=== PATIENT | female | born 1945 | race Caucasian/White ===

== ENCOUNTER 2023-02-10 11:29 | Emergency (ER) | payer MEDICARE, OTHER, SELFPAY ==
[2023-02-10 11:30] VITALS: BP 249/89; PULSE 68; RESP 16; TEMP 36.8; O2SAT 99; BMI 23.3
--- NOTE | 2023-02-10 11:35 | ED.RN ---
DISCUSSED WITH DR. 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 NO NEW ORDERS GIVEN.
--- NOTE | 2023-02-10 12:30 | EX.ED.DYSGE1 ---
HPI History of Present Illness Chief Complaint: Hypertension Informant: patient Narrative Narrative: The patient was referred in with elevated blood pressure. This patient saw boiler control room operator today. She has had some intermittent waxing and waning blurriness in the eye. She was following up today. 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 They stated that it is slowly getting bigger. They have her referred to a retinal specialist that she will be seeing on Monday. She is not having headaches. She is not having any neurologic complaints now. While she was at the office they got her blood pressure over 200 so they recommended she come in here. She states she has a history of high blood pressure. She is on carvedilol and Benicar. She has taken them. When she checks her blood pressure at home it is always about 120. She states she has a long history of whitecoat hypertension. She states it does not matter even if she is at the dentist her blood pressure will go up. She has no chest pain or shortness of breath or any symptoms related to this. [facility] Medical History Hypertension Retinal micro-aneurysm of right eye Home Medications carvedilol 6.25 mg tablet 12.5 mg PO BID 02/10/23 [History Last Taken Unknown] estradiol 0.01% (0.1 mg/gram) vaginal cream (Estrace) 0.5 appful vaginal QWEEK 02/10/23 [History Last Taken Unknown] [id number]-[id number] C-Mn 500 mg-400 mg capsule (Glucosamine Chondroitin Maximum Strength) 1 cap PO DAILY 02/10/23 [History Last Taken Unknown] methylprednisolone 4 mg tablet (Medrol) 4 mg PO QODAY 02/10/23 [History Last Taken Unknown] multivitamin (Daily Multi-Vitamin tablet) 1 tab PO DAILY 02/10/23 [History Last Taken Unknown] olmesartan 40 mg-hydrochlorothiazide 25 mg tablet (Benicar HCT) 1 tab PO DAILY 02/10/23 [History Last Taken Unknown] pantoprazole 40 mg granules delayed-release for susp in packet 40 mg PO DAILY 02/10/23 [History Last Taken Unknown] polyethylene glycol 3350 17 gram/dose oral powder (ClearLax) 4 g PO DAILY 02/10/23 [History Last Taken Unknown] potassium chloride 20 mEq tablet,extended release 20 meq PO BID 02/10/23 [History Last Taken Unknown] simvastatin 40 mg tablet 40 mg PO QHS 02/10/23 [History Last Taken Unknown] triamcinolone acetonide 0.1 % topical cream 1 applic topical BID 02/10/23 [History Last Taken Unknown] Allergy/AdvReac Type Severity Reaction Status Date / Time No Known Allergies Allergy Verified 02/10/23 11:30 Social History Smoking Status: Never smoker ROS ROS ED ROS Narrative A complete review of systems was performed and is negative except as documented in the history of present illness. Some specific details below. Constitutional: No recent fevers or chills. EYE: See history of present illness. ENT: No difficulty swallowing. No swelling. No pain. No reflux symptoms. CV: No palpitations chest pain or syncope Respiratory: No dyspnea. GI: No abdominal pain. No nausea vomiting diarrhea. No blood in stool. : No frequency dysuria or hematuria. Musculoskeletal: No recent trauma. No pains. No swelling. Skin: No rash. Nondiaphoretic. Neuro: No weakness or numbness. Endocrine: No polyuria or polydipsia. EXAM Physical Exam Narrative Exam Narrative: CONSTITUTIONAL: Patient is nontoxic in appearance. The patient looks comfortable. Work of breathing looks normal. HEENT: No notable trauma. Mucous membranes moist. No sinus tenderness. No indication of pain with swallowing. EYES: Partially dilated still. Comprehensive eye exam was just done by boiler control room operator within the last hours. NECK:No JVD. No stridor. CARDIOVASCULAR: Regular rate. Regular rhythm. No notable murmur. No JVD. No muffled tones. Peripheral pulses are equal x 4. RESPIRATORY: No respiratory distress. Breathing is unlabored. No wheezes. No rhonchi. No rales. No pain with a deep breath. No chest wall tenderness. GASTROINTESTINAL: Not distended. Bowel sounds are normal. No tenderness. GENITOURINARY: No CVA tenderness. MUSCULOSKELETAL: Atraumatic. No peripheral edema. No tenderness. NEUROLOGICAL: Patient is alert and appropriate. No focal deficit noted. SKIN: No noted rashes. No diaphoresis. PSYCHIATRIC: Patient is calm. Mood is appropriate. Const Vital Signs: 02/10/23 11:30 02/10/23 12:20 02/10/23 13:00 Temperature 98.2 F Temperature Source Temporal Pulse Rate 68 82 Respiratory Rate 16 20 H Respiratory Effort Normal Respiratory Pattern Normal Blood Pressure 249/89 H 178/94 H Blood Pressure Mean 142 122 Pulse Ox 99 97 Oxygen Delivery Method Room Air Room Air MDM MDM MDM Narrative Medical decision making narrative: Patient CBC shows no acute abnormalities. Patient's electrolytes show minimal elevation of chloride but otherwise normal. Patient's glucose is minimally up at 120 and this can be followed. This does not need acute treatment. Blood pressure is now down to 166/92. It is progressively come down with no therapy. She watches it at home closely. I do not think we need to change in therapy. She has an appointment with the retinal specialist on Monday. Lab Data Attestation: I reviewed the patient's lab results. Labs: Laboratory Results - last 24 hr 02/10/23 12:35 WBC 8.8 RBC 4.23 Hgb 14.1 Hct 41.1 MCV 97.2 MCH 33.3 H MCHC 34.3 RDW Std Deviation 41.7 RDW Coeff of Linda 11.8 Plt Count 238 MPV 9.5 Immature Gran % (Auto) 0.200 Neut % (Auto) 61.6 Lymph % (Auto) 25.6 Whitfield % (Auto) 9.1 Eos % (Auto) 2.7 Baso % (Auto) 0.8 Absolute Neuts (auto) 5.4 Absolute Lymphs (auto) 2.24 Nucleated RBC % 0 Sodium 141 Potassium 4.0 Chloride 108 H Carbon Dioxide 27.0 Anion Gap 6 BUN 15 Creatinine 0.82 Estim Creat Clear Calc 48.83 Est GFR (MDRD) Af Amer 87 Est GFR (MDRD) Non-Af 72 BUN/Creatinine Ratio 18.3 Glucose 120 H Calcium 9.5 Discharge Plan Triage Chief Complaint: Hypertension ED Provider: Gordon Proctor Dx/Rx/DC Orders Clinical Impression: Benign essential HTN Instructions: ED Hypertension, Established Prescriptions: No Action carvedilol 6.25 mg tablet 12.5 mg PO BID Rx Instructions: must administer with a meal/food estradiol [Estrace] 0.01 % (0.1 mg/gram) cream 0.5 appful vaginal QWEEK [id number] C-Mn [Glucosamine Chondroitin MaxStr] 500-400 mg capsule 1 cap PO DAILY methylprednisolone [Medrol] 4 mg tablet 4 mg PO QODAY polyethylene glycol 3350 [ClearLax] 17 gram/dose powder 4 g PO DAILY multivitamin [Daily Multi-Vitamin] Tablet 1 tab PO DAILY olmesartan-hydrochlorothiazide [Benicar HCT] 40-25 mg tablet 1 tab PO DAILY pantoprazole [address] for susp in packet 40 mg PO DAILY potassium chloride 20 mEq tablet extended release 20 meq PO BID simvastatin 40 mg tablet 40 mg PO QHS triamcinolone acetonide 0.1 % cream 1 applic topical BID Primary Care Provider: Fabio Seymour Referrals: Fabio Seymour MD [Primary Care Provider] - 3-5 Days if not improving Disposition Disposition: Home, Self Care
[2023-02-10 12:47] LABS: Absolute Lymphocyte Count 2.24 X10^3/uL (0.83-4.51); Absolute Neutrophil Count 5.4 X10^3/uL (2.0-7.7); Basophil# 0.07 X10^3/uL; Basophil% 0.8 % (0-1); Eosinophil# 0.24 X10^3/uL; Eosinophils% 2.7 % (0-5); Hematocrit 41.1 % (37-47); Hemoglobin 14.1 g/dL (12.0-15.0); Lymphocyte # 2.24 X10^3/ul (0.83-4.51); Lymphocyte % 25.6 % (19-41); Mean Corp Hgb Conc 34.3 g/dL (32-36); Mean Corpuscular Hgb 33.3 pg (27.0-32.0); Mean Corpuscular Volume 97.2 fL (81-99); Mean Platelet Vol. 9.5 fl (6.2-12.0); Monocyte% 9.1 % (0-10); NRBC Flagged by Analyzer 0 % (0-5); Neutrophil # 5.39 X10^3/uL (2.7-7.7); Neutrophil % 61.6 % (47-70); Platelet Count 238 K/mm3 (150-450); RBC Distribution Width CV 11.8 % (11.6-14.6); RBC Distribution Width SD 41.7 fl (35.1-43.9); Red Blood Count 4.23 M/mm3 (4.2-5.4); White Blood Count 8.8 K/mm3 (4.4-11.0)
[2023-02-10 13:00] VITALS: BP 178/94; PULSE 82; RESP 20; O2SAT 97
--- OUTSIDE RECORDS SUMMARY | 2023-02-10 13:04 | XMS RPT_ITS | CCD ---
Author Name Unknown Address [address] [place] [address] Organization [facility] Care Team Providers Care Scratcher Name Role Phone Fabio Beckham Referring Unavailable Fabio Beckham Primary Care Unavailable PO BECKHAM Referring Unavailable Po Beckham Primary Care Provider Lion ST, Po Salgado Primary Care Provider Yarely Noel R Unavailable Sadie ST, Yarely R Unavailable Po Beckham MD Primary Care Provider Sadie ST, Yarely R Unavailable MARITZA GASTELUM Referring Unavailable PO BECKHAM Primary Care Unavailable KEVIN NJ Referring Unavailable PO BECKHAM Primary Care Unavailable KEVIN NJ Admitting Unavailable KEVIN NJ Attending Unavailable PO BECKHAM Primary Care Unavailable Po Beckham MD Primary Care Provider Po Beckham MD Primary Care Provider Sadie ST, Yarely R Unavailable KELVIN MARISCAL Referring Unavailable PO BECKHAM Primary Care Unavailable MARITZA EASON Attending Unavailable KELVIN MARISCAL Attending Unavailable PO BECKHAM Primary Care Unavailable BARLEY, VANI Attending Unavailable PO BECKHAM Primary Care Unavailable PO BECKHAM Primary Care Unavailable PO BECKHAM Referring Unavailable PO BECKHAM Primary Care Unavailable BARLEY, VANI Referring Unavailable BARLEY, VANI Attending Unavailable PO BECKHAM Primary Care Unavailable PO BECKHAM Attending Unavailable KELVIN MARISCAL Referring Unavailable PO BECKHAM Primary Care Unavailable PO BECKHAM Primary Care Unavailable VANI JOSEPH Attending Unavailable PO BECKHAM Primary Care Unavailable VANI JOSEPH Attending Unavailable KELVIN MARISCAL Referring Unavailable OP BECKHAM Primary Care Unavailable Medications Current Medications Medication Drug Class(es) Dates Sig (Normalized) Sig (Original) acetaminophen 325 mg / oxyCODONE hydrochloride 5 mg oral tablet (4 sources) Opioid Agonist Start: 11-12-2021 End: 01-18-2022 take 1 tablet by mouth every six hours as needed for pain oxyCODONE-acetamino phen (PERCOCET) 5-325 mg tablet Indications: Tear of lateral meniscus of left knee, current, unspecified tear type, subsequent encounter Take 1 tablet by mouth every 6 hours as needed for pain. 10 tablet 0 11/12/2021 01/18/2022 Discontinued (Course of therapy completed) Completed/Discontinued Medications Medication Drug Class(es) Dates Sig (Normalized) Sig (Original) acetaminophen 500 mg oral tablet (1 source) Start: 11-01-2019 End: 11-01-2019 acetaminophen (TYLENOL) tablet 1,000 mg Ascorbic Acid (1 source) Vitamin C End: 11-01-2019 Ascorbic Acid (VITAMIN C PO) Take by mouth 0 11/01/2019 Discontinued (Therapy completed) ascorbic acid 60 mg / beta carotene 5000 unt / copper sulfate 40 mg / dl-alpha tocopheryl acetate 30 unt / sodium selenite 0.04 mg / zinc oxide 40 mg oral tablet (1 source) Vitamin C take 1 tablet by mouth once daily Multiple Vitamins-Minerals (THERAPEUTIC MULTIVITAMIN-MINERA LS) tablet Take 1 tablet by mouth daily 0 Suspended aspirin 81 mg delayed release oral tablet (20 sources) Platelet Aggregation Inhibitor, Nonsteroidal Anti-inflammatory Drug Start: 05-09-2016 take 1 tablet by mouth once daily aspirin, enteric coated (ECOTRIN LOW STRENGTH) 81 mg EC tablet Indications: Essential hypertension Take 1 tablet by mouth once daily. 90 tablet 3 05/09/2016 Active Problems Active Problems Problem Classification Problem Date Documented Date Episodic/Chronic Asthma (20 sources) Mild intermittent asthma; Translations: [Mild intermittent asthma, uncomplicated] Onset: 03-18-2020 03-18-2020 Chronic Disorders of lipid metabolism (20 sources) Mixed hyperlipidemia; Translations: [Mixed hyperlipidemia] Onset: 03-16-2016 03-16-2016 Chronic Diverticulosis and diverticulitis (20 sources) Diverticular disease; Translations: [Diverticulosis of intestine, part unspecified, without perforation or abscess without bleeding] Onset: 06-03-2009 06-03-2009 Chronic Esophageal disorders (20 sources) Gastroesophageal reflux disease; Translations: [Gastro-esophageal reflux disease without esophagitis] Onset: 03-25-2009 03-25-2009 Chronic Essential hypertension (20 sources) Essential hypertension; Translations: [Essential (primary) hypertension] Onset: 03-06-2015 03-06-2015 Chronic Genitourinary symptoms and ill-defined conditions (3 sources) Incontinence; Translations: [Mixed incontinence] Chronic Immunizations and screening for infectious disease (3 sources) Vaccination given; Translations: [Encounter for immunization] Episodic Joint disorders and dislocations; trauma-related (9 sources) Acute tear of medial meniscus of left knee; Translations: [Other tear of medial meniscus, current injury, left knee, initial encounter] Onset: 10-22-2021 Episodic Melanomas of skin (20 sources) Melanoma in situ of trunk; Translations: [Melanoma in situ of other part of trunk] Onset: 03-18-2019 03-18-2019 Chronic Menopausal disorders (3 sources) Atrophy of vagina; Translations: [Postmenopausal atrophic vaginitis] Chronic Mycoses (2 sources) Candidal vulvovaginitis; Translations: [Candidiasis of vulva and vagina] Episodic Osteoarthritis (20 sources) Osteoarthritis; Translations: [Unspecified osteoarthritis, unspecified site] Onset: 12-17-2009 02-08-2021 Chronic Other aftercare (1 source) Patient encounter status; Translations: [Other prison (current) drug therapy] Episodic Other ear and sense organ disorders (20 sources) Hearing loss; Translations: [Unspecified hearing loss, unspecified ear] Onset: 03-06-2014 03-06-2014 Chronic Other nervous system disorders (20 sources) Carpal tunnel syndrome of right wrist; Translations: [Carpal tunnel syndrome, right upper limb] Onset: 10-27-2017 11-30-2017 Chronic Other non-traumatic joint disorders (2 sources) Pain in left knee; Translations: [Pain in joint, lower leg] Episodic Other non-traumatic joint disorders (1 source) Effusion of joint of left knee; Translations: [Effusion, left knee] Episodic Other skin disorders (1 source) Skin lesion; Translations: [Disorder of the skin and subcutaneous tissue, unspecified] Episodic Prolapse of female genital organs (20 sources) Uterine prolapse; Translations: [Uterovaginal prolapse, unspecified] Onset: 06-29-2012 06-29-2012 Chronic Rehabilitation care; fitting of prostheses; and adjustment of devices (3 sources) Patient encounter status; Translations: [Encounter for fitting and adjustment of other specified devices] Chronic Residual codes; unclassified (1 source) H/O: surgery; Translations: [Status post right foot surgery] Episodic Unclassified (20 sources) Herniated urinary bladder; Translations: [Cystocele] Onset: 06-29-2012 06-29-2012 Past or Other Problems Problem Classification Problem Date Documented Da te Episodic/Chronic Conditions associated with dizziness or vertigo (20 sources) Benign paroxysmal positional vertigo; Translations: [Benign paroxysmal vertigo, unspecified ear] Onset: 03-06-2014 03-06-2014 Episodic Diabetes mellitus without complication (20 sources) Prediabetes; Translations: [Prediabetes] Onset: 10-22-2021 Episodic Fluid and electrolyte disorders (20 sources) Hypokalemia; Translations: [Hypokalemia] Onset: 10-04-2010 10-04-2010 Episodic Other aftercare (1 source) Other prison (current) drug therapy; Translations: [Medication management] Onset: 03-14-2022 Episodic Other ear and sense organ disorders (20 sources) Tinnitus; Translations: [Tinnitus, unspecified ear] Onset: 03-06-2014 03-06-2014 Episodic Other non-epithelial cancer of skin (20 sources) Basal cell carcinoma of neck; Translations: [Basal cell carcinoma of skin of scalp and neck] Onset: 08-23-2018 08-23-2018 Episodic Other non-traumatic joint disorders (6 sources) Pain in right hip joint; Translations: [Pain in right hip] Onset: 09-28-2022 09-08-2022 Episodic Other non-traumatic joint disorders (2 sources) Pain in right hip; Translations: [Pain in right hip] Onset: 09-28-2022 Episodic Other screening for suspected conditions (not mental disorders or infectious disease) (5 sources) Other abnormal and inconclusive findings on diagnostic imaging of breast; Translations: [Patient encounter status] Onset: 05-10-2018 Episodic Spondylosis; intervertebral disc disorders; other back problems (6 sources) Acute back pain with sciatica; Translations: [Lumbago with sciatica, right side] Onset: 09-28-2022 09-08-2022 Episodic Results Test Name Value Interpretation Reference Range Facil ity Vital Signs Date Time Vital Sign Value Performing Clinician Catherine valenzuela 02-02-2023 11:30-0500 Diastolic blood pressure 83 mm[Hg] Vani Barley TIME CLOCK INSPECTOR.MINER Work Phone (unformatted): [phone] [facility] 02-02-2023 11:30-0500 Heart rate 56 /min Vani Barley TIME CLOCK INSPECTOR.MINER Work Phone (unformatted): [phone] [facility] 02-02-2023 11:30-0500 SaO2% (BldA) [Mass fraction] 99 % Vani Barley TIME CLOCK INSPECTOR.MINER Work Phone (unformatted): [phone] [facility] 02-02-2023 11:30-0500 Systolic blood pressure 163 mm[Hg] Vani Barley TIME CLOCK INSPECTOR.MINER Work Phone (unformatted): [phone] [facility] 09-08-2022 09:24-0400 Body height 162.6 cm Kelvin Jose Carlos TIME CLOCK INSPECTOR.CN P Work Phone: [facility] 09-08-2022 09:24-0400 Body weight 61.24 kg Kelvin Jose Carlos TIME CLOCK INSPECTOR.CN P Work Phone: [facility] 09-08-2022 09:24-0400 Diastolic blood pressure 78 mm[Hg] Kelvin Jose Carlos TIME CLOCK INSPECTOR.MINER Work Phone: [facility] 09-08-2022 09:24-0400 Heart rate 82 /min Kelvin Jose Carlos TIME CLOCK INSPECTOR.CN P Work Phone: [facility] 09-08-2022 09:24-0400 Systolic blood pressure 185 mm[Hg] Kelvin Jose Carlos TIME CLOCK INSPECTOR.MINER Work Phone: [facility] 03-21-2022 10:18-0500 Body height 162.6 cm Po Beckham MD Work Phone: [facility] 03-21-2022 10:18-0500 Body weight 61.24 kg Po Beckham MD Work Phone: [facility] 03-21-2022 10:18-0500 Diastolic blood pressure 59 mm[Hg] Po Beckham MD Work Phone: [facility] 03-21-2022 10:18-0500 Heart rate 65 /min Po Beckham MD Work Phone: [facility] 03-21-2022 10:18-0500 SaO2% (BldA) [Mass fraction] 99 % Po Beckham MD Work Phone: [facility] 03-21-2022 10:18-0500 Systolic blood pressure 139 mm[Hg] Po Beckham MD Work Phone: [facility] 11-19-2021 10:08-0400 Body height 162.6 cm Ann Andrade PA- C Work Phone: [facility] 11-19-2021 10:08-0400 Body weight 60.78 kg Ann Andrade PA- C Work Phone: [facility] 10-22-2021 11:17-0400 Body height 162.6 cm Pacc 1 Work Phone: [facility] 10-22-2021 11:17-0400 Body temperature 98.1 [degF] Pacc 1 Work Phone: [facility] 10-22-2021 11:17-0400 Body weight 60.78 kg Pacc 1 Work Phone: [facility] 10-22-2021 11:17-0400 Diastolic blood pressure 78 mm[Hg] Pacc 1 Work Phone: [facility] 10-22-2021 11:17-0400 Heart rate 66 /min Pacc 1 Work Phone: [facility] 10-22-2021 11:17-0400 Respiratory rate 18 /min Pacc 1 Work Phone: [facility] 10-22-2021 11:17-0400 SaO2% (BldA) [Mass fraction] 98 % Pac 1 Work Phone: [facility] 10-22-2021 11:17-0400 Systolic blood pressure 166 mm[Hg] Pac 1 Work Phone: [facility] 10-04-2021 11:14-0400 Body height 162.6 cm Kevin Nj MD Work Phone: [facility] 10-04-2021 11:14-0400 Body weight 61.69 kg Kevin Nj MD Work Phone: [facility] 09-10-2021 10:43-0400 Body height 162.6 cm Kevin Nj MD Work Phone: [facility] 09-10-2021 10:43-0400 Body weight 61.69 kg Kevin Nj MD Work Phone: [facility] 07-14-2021 11:36-0400 Body height 162.6 cm Po Beckham MD Work Phone: [facility] 07-14-2021 11:36-0400 Body weight 61.69 kg Po Beckham MD Work Phone: [facility] 07-14-2021 11:36-0400 Diastolic blood pressure 57 mm[Hg] Po Beckham MD Work Phone: [facility] 07-14-2021 11:36-0400 Heart rate 64 /min Po Beckham MD Work Phone: [facility] 07-14-2021 11:36-0400 SaO2% (BldA) [Mass fraction] 99 % Po Beckham MD Work Phone: [facility] 07-14-2021 11:36-0400 Systolic blood pressure 168 mm[Hg] Po Beckham MD Work Phone: [facility] 11-01-2019 10:37-0400 BP Diastolic 72 mm[Hg] Mk Chamorro [place] 11-01-2019 10:37-0400 BP Systolic 170 mm[Hg] Mk Cook [facility] [place] 11-01-2019 10:37-0400 Pulse (Heart Rate) 59 /min Mk Cook [facility] [place] 11-01-2019 10:37-0400 Pulse Oximetry 100 % Mk Cook [facility] [place] 11-01-2019 10:37-0400 Respiratory Rate 16 /min Mk Cook [facility] [place] 11-01-2019 10:06-0400 Body Temperature 97.11 [degF] Mk Cook [facility] [place] 11-01-2019 06:39-0400 BMI (Body Mass Index) 23.38 kg/m2 Mk Cook [facility] [place] 11-01-2019 06:39-0400 Body weight 61.78 kg Mk Cook [facility] [place] 11-01-2019 06:39-0400 Height 162.6 cm Mk Cook [facility] [place] Encounters Encounter Date Encounter Type Care Provider Facility Start: 02-02-2023 End: 02-02-2023 ambulatory PO BECKHAM Facility:[facility] Start: 02-02-2023 End: 02-02-2023 Patient encounter procedure Vani Joseph APRN.AG Work Phone (unformatted): [phone] DIRECTOR OF ACQUISITIONS [facility]OL [facility] Procedures Date Procedure Procedure Detail Performing Clinician Start: 09-09-2022 Radex hip unilateral with pelvis 2-3 views Kelvin Mariscal APRN.AG Work Phone: Start: 06-13-2022 Screening mammography bi 2-view breast inc cad Po Beckham MD Work Phone: Start: 03-21-2022 PFIZER-BIONTECH COVID-19 BIVALENT BOOSTER VACCINE, AGE 12+ YR Kelvin Mariscal TIME CLOCK INSPECTOR.AG Work Phone: Start: 09-03-2021 PFIZER-BIONTECH COVID-19 VACCINE, AGE 12+ YR (LOVE TOP) Po Beckham MD Work Phone: Start: 07-15-2021 Radiologic examination knee 1/2 views Po Beckham MD Work Phone: Start: 07-14-2021 Adult depression screening assessment Po Beckham MD Work Phone: Start: 05-13-2021 Screening mammography bi 2-view breast inc cad Po Beckham MD Work Phone: Start: 11-01-2019 OPERATIVE REPORT 3m Scanning Start: 05-09-2016 Adult depression screening assessment Screen W[facility] History of operative procedure on knee S/P arthroscopic knee surgery Ann Andrade PA-C Work Phone: Plan of Treatment Date Care Activity Detail Author Start: 03-14-2025 DIABETES SCREEN DIABETES SCREEN [facility] Start: 03-14-2025 Diabetes Screening Diabetes Screenin g [facility] Start: 03-06-2025 DTaP/Tdap/Td vaccine (3 - Td) DTaP/Tdap/Td vaccine (3 - Td) [place] Start: 03-06-2025 Urine microalbumin profile [facility] Start: 10-22-2024 DIABETES SCREEN DIABETES SCREEN [facility] Start: 03-15-2024 DIABETES SCREEN DIABETES SCREEN [facility] Start: 09-09-2023 ANNUAL PCP TEAM BANDAGE WRAPPING MACHINE OPERATOR SOUMYA DISEASE VISIT ANNUAL PCP TEAM CHRONIC DISEASE VISIT [facility] Start: 03-21-2023 ANNUAL PCP TEAM BANDAGE WRAPPING MACHINE OPERATOR SOUMYA DISEASE VISIT ANNUAL PCP TEAM CHRONIC DISEASE VISIT [facility] Start: 10-14-2022 Covid-19 Vaccine ( season) Covid-19 Vaccine ( season) [facility] Start: 10-14-2022 Influenza vaccination INFLUENZA (#1) [facility] Start: 07-19-2022 COVID-19 VACCINE (6 - Pfizer series) COVID-19 VACCINE (6 - Pfizer series) [facility] Start: 07-14-2022 Adult depression screening assessment DEPRESSION SCREENING [facility] Start: 07-14-2022 ANNUAL PCP TEAM BANDAGE WRAPPING MACHINE OPERATOR SOUMYA DISEASE VISIT ANNUAL PCP TEAM CHRONIC DISEASE VISIT [facility] Start: 03-23-2022 ANNUAL PCP TEAM BANDAGE WRAPPING MACHINE OPERATOR SOUMYA DISEASE VISIT ANNUAL PCP TEAM CHRONIC DISEASE VISIT [facility] Start: 03-08-2022 End: 05-08-2022 CBC panel - Blood by Automated count CBC Lab Routine Medication management Expected: 03/08/2022, Expires: 05/08/2022 [facility] Work Phone: Immunizations Immunization Date Immunization Notes Care Provider Bhumi joanel 11-23-2022 influenza (aIIV4) vaccine, age 65+ yr, quadrivalent, PF (FLUAD QUAD) Vani Joseph TIME CLOCK INSPECTOR.MINER Work Phone (unformatted): [phone] [facility] 03-21-2022 COVID-19 booster vaccine, age 12+ yr, bivalent (PFIZER-BIONTECH) Po Beckham MD Work Phone: [facility] 12-02-2021 influenza (aIIV4) vaccine, age 65+ yr, quadrivalent, PF (FLUAD QUADRIVALENT) Po Beckham MD Work Phone: [facility] 09-03-2021 COVID-19 vaccine, ag e 12+ yr (PFIZER-BIONTECH - LOVE TOP) Nurse Work Phone: [facility] 12-10-2020 COVID-19 original vaccine, age 12+ yr, monovalent (PFIZER-BIONTECH - PURPLE TOP) Kelvin Jose Carlos TIME CLOCK INSPECTOR.MINER Work Phone: [facility] 05-07-2020 COVID-19 vaccine, ag e 12+ yr (PFIZER-BIONTECH - PURPLE TOP) Screen [facility] Work Phone: 04-16-2020 COVID-19 vaccine, ag e 12+ yr (PFIZER-BIONTECH - PURPLE TOP) Screen [facility] 11-19-2019 influenza, high dose seasonal, preservative-free [facility] 06-04-2019 zoster vaccine recombinant [facility] 03-18-2019 zoster vaccine recombinant [facility] 11-01-2018 AS03 adjuvant Po Beckham MD Work Phone: [facility] 11-01-2018 Seasonal trivalent influenza vaccine, adjuvanted, preservative free [facility] 12-11-2017 AS03 adjuvant Po Beckham MD Work Phone: [facility] 12-11-2017 influenza, high dose seasonal, preservative-free [facility] 12-11-2017 Seasonal trivalent influenza vaccine, adjuvanted, preservative free [facility] 12-02-2016 AS03 adjuvant Po Beckham MD Work Phone: [facility] 12-02-2016 influenza, injectabl e, quadrivalent, contains preservative [facility] Work Phone: 12-02-2016 Seasonal trivalent influenza vaccine, adjuvanted, preservative free [facility] 12-29-2015 influenza, seasonal, injectable [facility] 03-06-2015 pneumococcal conjuga te vaccine, 13 valent [facility] 03-06-2015 tetanus toxoid, redu jesus diphtheria toxoid, and acellular pertussis vaccine, adsorbed [facility] 01-03-2015 influenza, high dose seasonal, preservative-free [facility] 02-14-2013 influenza virus vaccine, unspecified formulation [facility] 01-23-2012 influenza virus vaccine, unspecified formulation [facility] 11-26-2010 influenza virus vaccine, unspecified formulation [facility] Work Phone: 12-17-2009 influenza virus vaccine, unspecified formulation [facility] Work Phone: 12-17-2009 pneumococcal polysaccharide vaccine, 23 valent [facility] 07-15-2007 tetanus toxoid, redu jesus diphtheria toxoid, and acellular pertussis vaccine, adsorbed [facility] Work Phone: 07-15-2007 zoster vaccine, live Screen [facility] Work Phone: Payers Date Payer Category Payer Unknown [id number] 2009 [employer] ([employer] and others) [id number] 2009 Medicare [id number] 2009 Medicare MEDICARE MEDICAR E A AND B [id number] 2009-Present [phone] [place] [address] Medicare [id number] 2009 Medicare MEDICARE MEDICAR E A AND B [id number] 2009-Present [phone] [place] [address] Medicare [id number] 2009 Unknown [id number] 1945 Unknown 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) [place], [place] Start: 1945 Sex Assigned At Not on file [place] Start: 05-03-2021 End: 11-12-2021 Exposure to SARS-CoV-2 (event) Not sure [place] Start: 04-30-2021 End: 02-02-2023 Alcohol intake Current drinker of alcohol (finding) [facility] Start: 03-21-2021 End: 03-15-2022 History SDOH Alcohol Frequency 2 [facility] Start: 03-21-2021 History SDOH Alcohol Std Drinks 98 [facility] Start: 03-21-2021 End: 03-15-2022 History SDOH Alcohol Binge 1 [facility] Start: 05-07-2009 History SDOH Alcohol Comment ocass [facility] Start: 03-21-2021 End: 03-15-2022 History SDOH Social Connections Phone 5 [facility] Start: 03-21-2021 End: 03-15-2022 History SDOH Social Connections Living 4 [facility] Start: 10-04-2021 End: 06-27-2022 Cigarettes smoked current (pack per day) - Reported 0.3 [facility] Start: 10-01-2021 End: 10-11-2021 Exposure to SARS-CoV-2 (event) Unable to assess [facility] Start: 10-22-2021 Tobacco Comment Quit 41 years ago [facility] Start: 03-15-2022 History SDOH Alcohol Std Drinks 0 [facility] Start: 03-14-2022 End: 06-27-2022 Social connection and isolation panel [facility] Attends [employer] Not on file [facility] Are you now , , , , never or living with a partner? [facility] How often do you hav e 6 or more drinks on 1 occasion? Never [facility] Do you feel stress - tense, restless, nervous, or anxious, or unable to sleep at night because your mind is troubled all the time - these days [OSQ] Not at all [facility] (I/We) worried wheth er (my/our) food would run out before (I/we) got money to buy more. Never true [facility] In the past 12 month s, was there a time when you were not able to pay the mortgage or rent on time? No [facility] Clinical Notes 12-17-2009 to 02-02-2023 Vani Joseph APRN.MINER - 02/02/2023 11:30 AM Maritza Cerrato, PT - 09/28/2022 11:24 AM Maia Huang RT(R) - 09/09/2022 10:40 AM EDTPatient Instructions Note Date & Type Note Facility 02-02-2023 Note HNO ID: [id number] Author: Vani Joseph APRN.CNP Service: ? Author Type: Nurse Practitioner Type: Progress Notes Filed: 02/02/2023 11:52 AM Note Text: Female Pelvic Medicine AND Reconstructive Surgery Follow-Up Oneyda Eastman is a 77 year old female, who presents for a follow-up of pelvic organ prolapse. HARRIETT on 11/03/2022 with me: Impression: Oneyda Eastman is a 77 year old female with POP, mixed urinary incontinence, vaginal atrophy. Plan: - Fit today with #2 RWS with knob pessary - Increase vaginal estrogen cream to three times a week, new rx sent - Return precautions reviewed, including vaginal bleeding and vaginal pain -Follow up in 3 months, sooner as needed History since last visit: Is very happy with pessary. Is only leaking occasionally with sneezing. Is using vaginal estrogen cream three times a week. Urinary Incontinence: yes, occasional Voiding Dysfunction: no Urinary Frequency: no Urinary Urgency: no Prolapse Symptoms: no Defecatory Dysfunction: no Fecal Incontinence: no Abnormal Bleeding: no Pain: no Abnormal Vaginal Discharge: no I completed the PFSH. Vani Joseph APRN.MINER Docking Pilot offered: Patient declines. OBJECTIVE: There were no vitals taken for this visit. General: Well appearing, alert, in no acute distress, well-hydrated, well nourished. Abdomen: Abdomen soft, non-tender Pelvic: Ext. Genitalia: No lesions or other abnormalities Vagina: atrophic epithelium #2 RWS with knob Pessary was removed and cleansed. Vagina was inspected and found have superficial, non-bleeding small erosion on posterior wall. Pessary replaced without difficulty. Cervix: Normal Urethra: Normal Bimanual: No tenderness, No masses Rectovaginal: Deferred Impression: Oneyda Eastman is a 77 year old female with uterovaginal prolapse, mixed urinary incontinence managed with pessary. Plan: - Continue with #2 RWS with knob pessary - Continue vaginal estrogen cream three times a week, reviewed application instructions - Follow up in 3 months, sooner as needed I spent a total of 15 minutes on the date of the service which included preparing to see the patient, [id number] patient care, completing clinical documentation, obtaining and/or reviewing separately obtained history, performing a medically appropriate examination, and counseling and educating the patient/family/caregiver. Vani Joseph APRN.MINER [facility] 02-02-2023 History of Present illness Narrative Female Pelvic Medicine & Reconstructive Surgery Follow-Up Oneyda Eastman is a 77 year old female, who presents for a follow-up of pelvic organ prolapse. HARRIETT on 11/03/2022 with me: Impression: Oneyda Eastman is a 77 year old female with POP, mixed urinary incontinence, vaginal atrophy. Plan: - Fit today with #2 RWS with knob pessary - Increase vaginal estrogen cream to three times a week, new rx sent - Return precautions reviewed, including vaginal bleeding and vaginal pain -Follow up in 3 months, sooner as needed History since last visit: Is very happy with pessary. Is only leaking occasionally with sneezing. Is using vaginal estrogen cream three times a week. Urinary Incontinence: yes, occasional Voiding Dysfunction: no Urinary Frequency: no Urinary Urgency: no Prolapse Symptoms: no Defecatory Dysfunction: no Fecal Incontinence: no Abnormal Bleeding: no Pain: no Abnormal Vaginal Discharge: no I completed the PFSH. Vani Joseph APRN.MINER [employer] offered: Patient declines. OBJECTIVE: There were no vitals taken for this visit. General: Well appearing, alert, in no acute distress, well-hydrated, well nourished. Abdomen: Abdomen soft, non-tender Pelvic: Ext. Genitalia: No lesions or other abnormalities Vagina: atrophic epithelium #2 RWS with knob Pessary was removed and cleansed. Vagina was inspected and found have superficial, non-bleeding small erosion on posterior wall. Pessary replaced without difficulty. Cervix: Normal Urethra: Normal Bimanual: No tenderness, No masses Rectovaginal: Deferred Impression: Oneyda Eastman is a 77 year old female with uterovaginal prolapse, mixed urinary incontinence managed with pessary. Plan: - Continue with #2 RWS with knob pessary - Continue vaginal estrogen cream three times a week, reviewed application instructions - Follow up in 3 months, sooner as needed I spent a total of 15 minutes on the date of the service which included preparing to see the patient, [id number] patient care, completing clinical documentation, obtaining and/or reviewing separately obtained history, performing a medically appropriate examination, and counseling and educating the patient/family/caregiver. Vani Joseph APRN.CNP documented in this encounter [facility] 11-03-2022 Note HNO ID: [id number] Author: Vani Joseph APRN.CNP Service: ? Author Type: Nurse Practitioner Type: Progress Notes Filed: 11/03/2022 11:36 AM Note Text: Female Pelvic Medicine AND Reconstructive Surgery Follow-Up Oneyda Eastman is a 77 year old female, who presents for a follow-up of urinary incontinence, pelvic organ prolapse. HARRIETT on 06/27/2022: Impression: Oneyda Eastman is a 76 year old female with KEYLA and POP managed with pessary, vaginal atrophy. Plan: - Continue with #3 RWS with knob - Advised patient when she applies vaginal estrogen cream to check knob placement - Continue vaginal estrogen cream twice weekly - Follow up in 3-4 months, sooner as needed History since last visit: Patient noticed light red blood last week when wiping. States pessary is comfortable, has improved her urinary leakage. She uses vaginal estrogen BIW, needs refill. She does not remove/replace pessary herself. Urinary Incontinence: yes, rare MARCELINO with full bladder Voiding Dysfunction: no Urinary Frequency: no Urinary Urgency: no Prolapse Symptoms: no, not with pessary in Defecatory Dysfunction: no Fecal Incontinence: no Abnormal Bleeding: yes, see HPI Pain: no Abnormal Vaginal Discharge: no DIRECTOR OF ACQUISITIONS HISTORY: Last pap: Date:unknown; Last mammogram: Her last mammogram was 2022. She has no history of an abnormal mammogram LMP: No LMP recorded. Patient is postmenopausal.; Menopause yes: Menstrual history: NA; Deliveries: I have confirmed and edited as necessary, the PFSH obtained by others. Vani Joseph APRN.MINER [employer] offered: Patient declines. OBJECTIVE: There were no vitals taken for this visit. General: Well appearing, alert, in no acute distress, well-hydrated, well nourished. Abdomen: Abdomen soft, non-tender Pelvic: Ext. Genitalia: No lesions or other abnormalities Vagina: atrophic epithelium #3 RWS with knob Pessary was removed and cleansed. Vagina was inspected and found to have erythema and non bleeding erosion on posterior vaginal wall. #2 RWS Pessary was replaced without difficulty. Impression: Oneyda Eastman is a 77 year old female with POP, mixed urinary incontinence, vaginal atrophy. Plan: - Fit today with #2 RWS with knob pessary - Increase vaginal estrogen cream to three times a week, new rx sent - Return precautions reviewed, including vaginal bleeding and vaginal pain -Follow up in 3 months, sooner as needed Medical Decision Making: Problems: Moderate: 2+ stable chronic illnesses Risk: Moderate: Drug management Medical Decision Making Level: 4 - Moderate Vani Joseph APRN.MINER [facility] 09-28-2022 Note HNO ID: [id number] Author: Maritza Eason, AGNIESZKA Service: ? Author Type: Physical Therapist Type: Progress Notes Filed: 11/14/2022 10:38 AM Note Text: 11/14/2022 [facility]ORTS THERAPY PHYSICAL THERAPY DISCONTINUANCE OF CARE Plan of Care Period: Start of Care Date: 09/28/22 Last Visit Date: 09/28/2022 Therapy Program: Patient did not return for follow up care as planned. Please refer to last visit note for interventions provided for this episode of care. Assessment: Unable to formally assess goal achievement. Reason for Discontinuation of Care: Patient has not returned to therapy or scheduled additional follow-up appointments. Maritza Eason, PT Episode Visit Count: 1 Therapist That Will Accept/Oversee The Plan Of Care: Maritza Eason Start of Care Date: 09/28/22 Onset Date: 08/28/22 Plan of Care Certification Date: 09/28/22 Next Certification Due Date: 11/02/22 REHABILITATION AND SPORTS THERAPY PHYSICAL THERAPY EVALUATION PLAN OF CARE: Assessment: Oneyda Eastman presents with diagnosis of right hip pain and midline low back pain with right side sciatica that interferes with physical activities . She presents with impairments in ADL's, independence in exercise, overall function, patient reported outcome measures, posture, and range of motion. PROMIS? (Patient-Reported Outcomes Measurement Information System) scores were reviewed and physical function domain identified as a rehabilitation concern. Prognosis for therapy is Good due to: current objective clinical presentation, good overall health status, positive past response to therapy, acuteness of condition, within-session changes, good support system/ coping skills . She will benefit from skilled therapy services to meet the goals established for this plan of care as noted below. Classification Low Back Pain Subgroup Classification: Specific exercise subgroup: recommended visits 8. Specific Exercies Subgroup Classification based on: directional preference Goals for Episode of Care: created on 09/28/22 through 11/09/22 Independent in home exercises. Patient will decrease pain to 1-2/10 with functional activities to allow patient to improve standing tolerance for ADLs. Restore pain-free lumbar ROM to minimal to no limitation grossly without increased symptoms to allow for transitional movements and ADLs. Maintain proper sitting posture throughout session Patient will be able to tolerate functional activities for 1-2 hours without increased symptoms. Patient Goals: independent with HEP to self manage symptoms Planned Interventions, Frequency, and Duration: Current Frequency: 1x/week Duration: 6 weeks Total Number of Visits Planned: 6 Planned Treatment Interventions: Therapeutic exercise (27464), Neuromuscular re-education (16550), Manual therapy (75944), Therapeutic activities (48841), Self-detention management (26156), Gait Training (80510) PLAN FOR NEXT VISIT: Hold chart x 6 weeks. Pt. to return if unable to self manage symptoms with HEP Patient demonstrates good understanding of plan of care and treatment. The above goals and plan of care were discussed and agreed upon by patient/family. SUBJECTIVE: for bilateral low back pain with radiating BLE symptoms that onset without injury about 1 month ago. Pt. talked with a friend who suggested exercises given to friend who had PT. Pt. describes flexion based exercises and reports no symptoms today. She decided to come to this visit for further consult, although reports she is currently self managing her symptoms with flexion exercises. Patient Goals: independent with HEP to self manage symptoms Functional Limitations: physical activities Prior Level of Function: Independent without limitations Intake Information: Prescription present Previous Treatment: Self prescribed exercises Falls Interview: No positive findings with falls interview Red Flags Vertebral Fracture Red Flags: Female, Age >70 Vertebral Fracture Clinical Reasoning: Proceed with caution due to the above (1-2) risk factors Abdominal Aortic Aneurysm Red Flags: Age >60 Abdominal Aortic Aneurysm Clinical Reasoning: Proceed with caution Cancer Red Flags: Age >50 or <20 Cancer Clinical Reasoning: Proceed with caution Infection Clinical Reasoning: Proceed with caution Cauda Equina Syndrome Clinical Reasoning: No identified risk factors. Red Flags - Cervical Cancer Red Flags: Age >50 or <20 Cancer Clinical Reasoning: Proceed with caution Infection Clinical Reasoning: Proceed with caution Spine History Symptoms Location at Onset: Back Symptoms Since Onset: Improving Pain is Worse Always: As the day progresses Pain is Better Always: Bending Pain: Pain Pain Level: 0 Pain Location: Low Back/Lumbar Spine- Midline Description: Aching Additional Pain Information : Location 2 Pain Level 2: 0 Pain Location 2: Leg - Right, Thigh - (more content not included)... [facility] 09-28-2022 History of Present illness Narrative Episode Visit Count: 1 Therapist That Will Accept/Oversee The Plan Of Care: Maritza Eason Start of Care Date: 09/28/22 Onset Date: 08/28/22 Plan of Care Certification Date: 09/28/22 Next Certification Due Date: 11/02/22 REHABILITATION AND SPORTS THERAPY PHYSICAL THERAPY EVALUATION PLAN OF CARE: Assessment: Oneyda Eastman presents with diagnosis of right hip pain and midline low back pain with right side sciatica that interferes with physical activities . She presents with impairments in ADL's, independence in exercise, overall function, patient reported outcome measures, posture, and range of motion. PROMIS (Patient-Reported Outcomes Measurement Information System) scores were reviewed and physical function domain identified as a rehabilitation concern. Prognosis for therapy is Good due to: current objective clinical presentation, good overall health status, positive past response to therapy, acuteness of condition, within-session changes, good support system/ coping skills . She will benefit from skilled therapy services to meet the goals established for this plan of care as noted below. Classification Low Back Pain Subgroup Classification: Specific exercise subgroup: recommended visits 8. Specific Exercies Subgroup Classification based on: directional preference Goals for Episode of Care: created on 09/28/22 through 11/09/22 Independent in home exercises. Patient will decrease pain to 1-2/10 with functional activities to allow patient to improve standing tolerance for ADLs. Restore pain-free lumbar ROM to minimal to no limitation grossly without increased symptoms to allow for transitional movements and ADLs. Maintain proper sitting posture throughout session Patient will be able to tolerate functional activities for 1-2 hours without increased symptoms. Patient Goals: independent with HEP to self manage symptoms Planned Interventions, Frequency, and Duration: Current Frequency: 1x/week Duration: 6 weeks Total Number of Visits Planned: 6 Planned Treatment Interventions: Therapeutic exercise (68774), Neuromuscular re-education (05140), Manual therapy (66946), Therapeutic activities (08355), Self-detention management (43016), Gait Training (23567) PLAN FOR NEXT VISIT: Hold chart x 6 weeks. Pt. to return if unable to self manage symptoms with HEP Patient demonstrates good understanding of plan of care and treatment. The above goals and plan of care were discussed and agreed upon by patient/family. SUBJECTIVE: for bilateral low back pain with radiating BLE symptoms that onset without injury about 1 month ago. Pt. talked with a friend who suggested exercises given to friend who had PT. Pt. describes flexion based exercises and reports no symptoms today. She decided to come to this visit for further consult, although reports she is currently self managing her symptoms with flexion exercises. Patient Goals: independent with HEP to self manage symptoms Functional Limitations: physical activities Prior Level of Function: Independent without limitations Intake Information: Prescription present Previous Treatment: Self prescribed exercises Falls Interview: No positive findings with falls interview Red Flags Vertebral Fracture Red Flags: Female, Age >70 Vertebral Fracture Clinical Reasoning: Proceed with caution due to the above (1-2) risk factors Abdominal Aortic Aneurysm Red Flags: Age >60 Abdominal Aortic Aneurysm Clinical Reasoning: Proceed with caution Cancer Red Flags: Age >50 or <20 Cancer Clinical Reasoning: Proceed with caution Infection Clinical Reasoning: Proceed with caution Cauda Equina Syndrome Clinical Reasoning: No identified risk factors. Red Flags - Cervical Cancer Red Flags: Age >50 or <20 Cancer Clinical Reasoning: Proceed with caution Infection Clinical Reasoning: Proceed with caution Spine History Symptoms Location at Onset: Back Symptoms Since Onset: Improving Pain is Worse Always: As the day progresses Pain is Better Always: Bending Pain: Pain Pain Level: 0 Pain Location: Low Back/Lumbar Spine- Midline Description: Aching Additional Pain Information : Location 2 Pain Level 2: 0 Pain Location 2: Leg - Right, Thigh - Left Description 2: Aching Post Treatment Pain Post Treatment Pain Level: No Change Post Treatment Pain Location: Low Back/Lumbar Spine- Midline Post Treatment Pain Score 2: No Change Post Treatment Pain Location 2: Leg - Right, Thigh - Left PROMIS Scales Higher is Better 09/27/2022 Phys Func - Score 44 (mild dysfunction) Phys Func - Percentile 27 % Self-Eff Symptom - Score 48 (Average) Self-Eff Symptom - Percentile 42 % T-scores: mean of general population = 50. 5 points is clinically meaningfully difference Percentiles provide an indication of how the patient's score ranks in relation to the general population. Higher percentile rankings indicate better function/quality of life. 50th percentile is the average of the general population and indicates half of respondents had a worse score. OBJECTIVE MEASURES WITH LEVEL OF FUNCTION: Posture / Alignment Posture: Good Sensation - Lumbar Sensation: Grossly Intact Lumbar Spine AROM Lumbar Flexion: Normal Lumbar Extension: Minimal limitation Lumbar R Side [place]: Produces Lumbar L Side [place]: Produces Lumbar R Side-Bend: Normal Lumbar L Side-Bend: Normal Lumbar R Rotation: Normal Lumbar L Rotation: Normal Education: Education Learning Preferences: Performance, Printed Materials, Demonstration, Explanation Barriers: None Learning/educational needs: Plan of Care, Home exercise program, Posture Education Provided: Yes, see treatment interventions for education provided Education Mode/Type: Demonstration, Explanation/Discussion, Literature/Printed Materials, Performance Response to Education/Teach Back: States/Identifies, Return Demonstration TREATMENT: PT Treatment Interventions: Therapeutic Exercise, Self-Snf Management Evaluation Therapeutic Exercise: 1: *B KTC 3x30 sec 2: *S KTC 3x30 sec each side 3: *hook lying TA activation 2x10 4: *hook lying pelvic rotation 3x30 sec each side 5: lumbar flexion seated - complete slowly, optional due to vertigo, 2x10 Skilled Intervention: Patient was educated in proper exercise technique and purpose for exercises. Skilled judgment was provided in selection of appropriate interventions. Provided written instruction for home exercise program to facilitate proper performance and compliance. Correct performance of therapeutic exercises was facilitated with verbal, visual, and tactile cuing. Educated patient on rationale for performing exercises in regards to decreasing fatigue , increase ease of ADL, and ROM and function . Patient education as noted. Self-Snf Management: 1: *postural education 2: *directional preference 3: *discussed that current exercises are consistent with lumbar flexion directional preference, continue due to relief provided per pt. report Skilled Intervention: Skilled judgment in the selection of proper modification for activity of daily living/home management based on clinical presentation, deficits, and needs. Provided written instruction for activities of daily living techniques to facilitate proper performance and compliance. Activity progression based on professional judgement. Moderate verbal cues for maintaining neutral spine alignment. Provided written instruction for home program to facilitate proper performance and compliance. Correct performance of home program was facilitated with verbal, visual, and tactile cueing. Billing * Evaluation Low Complexity: 1 Unit Therapeutic Exercise Treatment Minutes: 15 Self-Care/Home Management Treatment Minutes: 10 Total Treatment Time Minutes (timed/untimed): 45 Session Start Time : 1115 Session Stop Time : 1200 Maritza Eason PT documented in this encounter [facility] 09-09-2022 Note HNO ID: [id number] Author: Maia Russell RT(R) Service: Radiology Author Type: Technologist Type: Progress Notes Filed: 09/09/2022 11:42 AM Note Text: Radiology Service Progress Note PATIENT NAME: Oneyda Eastman DATE OF SERVICE: September 09, 2022 TIME: 11:26 AM PATIENT IDENTITY VERIFICATION COMPLETED USING TWO (2) IDENTIFIERS: Name and Date of confirmed by patient verbally. FALL SCREENING: Has the patient had 2 falls in the last year or 1 fall with injury or currently using an Ambulatory Assistive Device (Walker, Cane, Wheelchair, Crutches, etc.)? No PATIENT GENDER DATA: Female. status: : No status: NO. PATIENT RELEVANT IMPLANT DATA REVIEWED: Not Applicable RADIOLOGY DEPARTMENT: General X-ray: Exam(s) Completed: Spine X-Ray(s): Lumbar AP / LAT / L5-S1 Pelvis X-Ray: Pelvis with Hip Right PERIPHERAL IV DATA: Not applicable SIGNED BY: RT Aroldo(R) September 09, 2022 11:26 AM [facility] 09-09-2022 History of Present illness Narrative Radiology Service Progress Note PATIENT NAME: Oneyda Eastman DATE OF SERVICE: September 09, 2022 TIME: 11:26 AM PATIENT IDENTITY VERIFICATION COMPLETED USING TWO (2) IDENTIFIERS: Name and Date of confirmed by patient verbally. FALL SCREENING: Has the patient had 2 falls in the last year or 1 fall with injury or currently using an Ambulatory Assistive Device (Walker, Cane, Wheelchair, Crutches, etc.)? No PATIENT GENDER DATA: Female. status: : No status: NO. PATIENT RELEVANT IMPLANT DATA REVIEWED: Not Applicable RADIOLOGY DEPARTMENT: General X-ray: Exam(s) Completed: Spine X-Ray(s): Lumbar AP / LAT / L5-S1 Pelvis X-Ray: Pelvis with Hip Right PERIPHERAL IV DATA: Not applicable SIGNED BY: RT Aroldo(R) September 09, 2022 11:26 AM documented in this encounter [facility] 09-08-2022 Note HNO ID: [id number] Author: Kelvin Mariscal APRN.MINER Service: ? Author Type: Nurse Practitioner Type: Progress Notes Filed: 09/08/2022 10:33 AM Note Text: This note was created using [employer]ion[employer]. Subjective Oneyda Eastman is a 76 year old female. Patient reports right hip pain started intermittently over the last few months. In the last couple weeks, now is having pain in the right leg, usually starts in the thigh, but as the day goes on, it radiates down to the foot. No worsening pain in the right hip since the leg pain started. Also has had some intermittent low back pain across the whole lower back, plus some tightness/ache to back of upper legs. The current leg pain feels like an ache . No paresthesias or weakness in leg. Tried voltaren on the back and hip, ibuprofen/tylenol with some relief. Pain level max is 8/10, can get down to zero when she takes ibuprofen and tylenol. Once she gets comfortable in bed, she sleeps fine, pain does not wake her from sleep. No history of back or hip problems, no injury. No bowel/bladder changes or paresthesias in groin. The history is provided by the patient. Review of Systems Gastrointestinal: Negative for constipation and diarrhea. Genitourinary: Negative for difficulty urinating. Musculoskeletal: Positive for arthralgias and back pain. Negative for gait problem and joint swelling. PAST MEDICAL HISTORY Diagnosis Date Arthritis Basal cell carcinoma Diverticulosis of colon (without mention of hemorrhage) External hemorrhoids without mention of complication Hemorrhage of gastrointestinal tract, unspecified Hyperglycemia Hyperlipidemia Internal hemorrhoids without mention of complication Ischemic colon (HCC) Osteoporosis Unspecified essential hypertension PAST SURGICAL HISTORY Procedure Laterality Date COLONOSCOPY 2006 COLONOSCOPY FLX DX W/COLLJ SPEC WHEN PFRMD 06/03/09 DANDC DIAG AND/OR THERAP, NOT OB HAMMERTOE REVISION, ONE TOE NEUROPLASTY AND/TRANSPOS MEDIAN NRV CARPAL TUNNE Right 11/30/2017 Right carpal tunnel release NEUROPLASTY AND/TRANSPOS MEDIAN NRV CARPAL TUNNE Left 05/31/2018 Left carpal tunnel release PAST SURGICAL HISTORY OF 04/13/2018 Mohl surgery on head TUBAL LIGATION, XCAPSL CTRC RMVL INSJ IO LENS PROSTH W/O ECP Left 12/2012 Cataract Extraction with Femtosecond Laser (LenSx) XCAPSL CTRC RMVL INSJ IO LENS PROSTH W/O ECP Right 01/2013 Cataract Extraction with Femtosecond Laser (LenSx) ALLERGIES Patient has no known allergies. MEDICATIONS triamcinolone acetonide (KENALOG) 0.1 % cream Apply 1 application to affected area twice daily. pantoprazole DR (PROTONIX) 40 mg tablet TAKE 1 TABLET DAILY potassium chloride ER (K-DUR, KLOR-CON) 20 mEq tablet Take 1 tablet by mouth twice daily. carvedilol (COREG) 6.25 mg tablet Take 2 tablets by mouth twice daily with meals. simvastatin (ZOCOR) 40 mg tablet Take 1 tablet by mouth daily at bedtime. olmesartan-hydroCHLOROthiazide (BENICAR HCT) 40-25 mg per tablet TAKE 1 TABLET DAILY estradiol (ESTRACE) 0.01 % (0.1 mg/gram) vaginal cream Express 1/2 gram of cream on fingertip and apply cream just inside the vaginal opening qHS x 2 weeks, and then twice weekly polyethylene glycol 3350 (MIRALAX ORAL) Take by mouth. aspirin, enteric coated (ECOTRIN LOW STRENGTH) 81 mg EC tablet Take 1 tablet by mouth once daily. CALCIUM CARBONATE/VITAMIN D2 (CALCIUM + VITAMIN D ORAL) Take by mouth. gluc thomas/chondro thomas a/vit c/mn(GLUCOSAMINE CHONDROITIN MAXIMUM STRENGTH 500 MG-400 MG CAP) Take one(1) tablet daily. multivitamins(MULTIPLE VITAMIN TAB) Take one(1) tablet daily. methylPREDNISolone (MEDROL, BAKARI,) 4 mg Dose-Pack Follow dosing instructions, take with food. FAMILY HISTORY Problem Relation Age of Onset Hypertension Mother Arthritis Mother Heart Mother Hypertension Father Diabetes Father Arthritis Father Heart Father Diabetes Sister Diabetes Daughter Social History Tobacco Use Smoking status: Former Packs/day: 0.25 Years: 10.00 Total pack years: 2.50 Types: Cigarettes Quit date: 1980 Years since quittin.5 Smokeless tobacco: Never Tobacco comments: Quit 41 years ago Vaping Use Vaping Use: Never used Substance Use Topics Alcohol use: Yes Comment: ocass Drug use: Never Objective BP 185/78 Pulse 82 Ht 162.6 cm (5' 4.02 ) Wt 61.2 kg (135 lb) BMI 23.16 kg/m? Physical Exam Vitals and nursing note reviewed. Constitutional: Appearance: She is well-developed. Pulmonary: Effort: Pulmonary effort is normal. Musculoskeletal: Thoracic back: No tenderness or bony tenderness. Normal range of motion. Lumbar back: No tenderness or bony tenderness. Normal range of motion. Negative right straight leg raise test and negative left straight leg raise test. Right hip: No tenderness or bony tenderness. Normal range of motion. Normal strength. Skin: General: Skin is warm and dry. Neurologi (more content not included)... [facility] 09-08-2022 Instructions Kelvin Mariscal APRN.MINER - 09/08/2022 9:48 AM EDT SCIATICA: Your exam shows you have sciatica, a condition most often seen in patients with disc disease of the lower back. Sciatica causes pain to radiate from the lower back or buttock area down the leg. It results from pressure on nerve roots coming out of the spine when a disc deteriorates and pushes to one side. Often there is a history of back problems. In most cases sciatica improves greatly with conservative treatment. Most patients with it are completely better after 2-4 weeks of bed rest and other supportive care. Bed rest reduces the disc pressure greatly; sitting is the worst position since the pressure on the disc is over 5 times greater than it is while lying down. You should avoid bending, lifting, and all other activities which make the problem worse. After the pain improves, you may continue with normal activity, taking brief periods for bed rest throughout the day until you are back to normal. Aspirin, ibuprofen, or other anti-inflammatory drugs are often used to help control pain. Muscle relaxants may help by relieving spasm and providing mild sedation. Cold or heat therapy and massage may also give significant relief. Spinal manipulation is not recommended because it can increase the degree of disc protrusion. Surgery is reserved for patients that do not improve with conservative treatment, or who have signs of severe nerve root pressure. You should see your doctor for follow up care as recommended. A program for back injury rehabilitation with stretching and strengthening exercises is an important part of management. Please call your doctor, a back specialist, or the emergency room right away if you notice increased pain, weakness, or numbness in your legs, or if you have any difficulty with bladder or bowel control. documented in this encounter [facility] 09-08-2022 History of Present illness Narrative This note was created using [employer]. Subjective Oneyda Eastman is a 76 year old female. Patient reports right hip pain started intermittently over the last few months. In the last couple weeks, now is having pain in the right leg, usually starts in the thigh, but as the day goes on, it radiates down to the foot. No worsening pain in the right hip since the leg pain started. Also has had some intermittent low back pain across the whole lower back, plus some tightness/ache to back of upper legs. The current leg pain feels like an ache . No paresthesias or weakness in leg. Tried voltaren on the back and hip, ibuprofen/tylenol with some relief. Pain level max is 8/10, can get down to zero when she takes ibuprofen and tylenol. Once she gets comfortable in bed, she sleeps fine, pain does not wake her from sleep. No history of back or hip problems, no injury. No bowel/bladder changes or paresthesias in groin. The history is provided by the patient. Review of Systems Gastrointestinal: Negative for constipation and diarrhea. Genitourinary: Negative for difficulty urinating. Musculoskeletal: Positive for arthralgias and back pain. Negative for gait problem and joint swelling. PAST MEDICAL HISTORY Diagnosis Date Arthritis Basal cell carcinoma Diverticulosis of colon (without mention of hemorrhage) External hemorrhoids without mention of complication Hemorrhage of gastrointestinal tract, unspecified Hyperglycemia Hyperlipidemia Internal hemorrhoids without mention of complication Ischemic colon (HCC) Osteoporosis Unspecified essential hypertension PAST SURGICAL HISTORY Procedure Laterality Date COLONOSCOPY 2006 COLONOSCOPY FLX DX W/COLLJ SPEC WHEN PFRMD 06/03/09 D&C DIAG &/OR THERAP, NOT OB HAMMERTOE REVISION, ONE TOE NEUROPLASTY &/TRANSPOS MEDIAN NRV CARPAL TUNNE Right 11/30/2017 Right carpal tunnel release NEUROPLASTY &/TRANSPOS MEDIAN NRV CARPAL TUNNE Left 05/31/2018 Left carpal tunnel release PAST SURGICAL HISTORY OF 04/13/2018 Mohl surgery on head TUBAL LIGATION, XCAPSL CTRC RMVL INSJ IO LENS PROSTH W/O ECP Left 12/2012 Cataract Extraction with Femtosecond Laser (LenSx) XCAPSL CTRC RMVL INSJ IO LENS PROSTH W/O ECP Right 01/2013 Cataract Extraction with Femtosecond Laser (LenSx) ALLERGIES Patient has no known allergies. MEDICATIONS triamcinolone acetonide (KENALOG) 0.1 % cream Apply 1 application to affected area twice daily. pantoprazole DR (PROTONIX) 40 mg tablet TAKE 1 TABLET DAILY potassium chloride ER (K-DUR, KLOR-CON) 20 mEq tablet Take 1 tablet by mouth twice daily. carvedilol (COREG) 6.25 mg tablet Take 2 tablets by mouth twice daily with meals. simvastatin (ZOCOR) 40 mg tablet Take 1 tablet by mouth daily at bedtime. olmesartan-hydroCHLOROthiazide (BENICAR HCT) 40-25 mg per tablet TAKE 1 TABLET DAILY estradiol (ESTRACE) 0.01 % (0.1 mg/gram) vaginal cream Express 1/2 gram of cream on fingertip and apply cream just inside the vaginal opening qHS x 2 weeks, and then twice weekly polyethylene glycol 3350 (MIRALAX ORAL) Take by mouth. aspirin, enteric coated (ECOTRIN LOW STRENGTH) 81 mg EC tablet Take 1 tablet by mouth once daily. CALCIUM CARBONATE/VITAMIN D2 (CALCIUM + VITAMIN D ORAL) Take by mouth. gluc thomas/chondro thomas a/vit c/mn(GLUCOSAMINE CHONDROITIN MAXIMUM STRENGTH 500 MG-400 MG CAP) Take one(1) tablet daily. multivitamins(MULTIPLE VITAMIN TAB) Take one(1) tablet daily. methylPREDNISolone (MEDROL, BAKARI,) 4 mg Dose-Pack Follow dosing instructions, take with food. FAMILY HISTORY Problem Relation Age of Onset Hypertension Mother Arthritis Mother Heart Mother Hypertension Father Diabetes Father Arthritis Father Heart Father Diabetes Sister Diabetes Daughter Social History Tobacco Use Smoking status: Former Packs/day: 0.25 Years: 10.00 Total pack years: 2.50 Types: Cigarettes Quit date: 1980 Years since quittin.5 Smokeless tobacco: Never Tobacco comments: Quit 41 years ago Vaping Use Vaping Use: Never used Substance Use Topics Alcohol use: Yes Comment: ocass Drug use: Never Objective BP 185/78 Pulse 82 Ht 162.6 cm (5' 4.02 ) Wt 61.2 kg (135 lb) BMI 23.16 kg/m Physical Exam Vitals and nursing note reviewed. Constitutional: Appearance: She is well-developed. Pulmonary: Effort: Pulmonary effort is normal. Musculoskeletal: Thoracic back: No tenderness or bony tenderness. Normal range of motion. Lumbar back: No tenderness or bony tenderness. Normal range of motion. Negative right straight leg raise test and negative left straight leg raise test. Right hip: No tenderness or bony tenderness. Normal range of motion. Normal strength. Skin: General: Skin is warm and dry. Neurological: Mental Status: She is alert and oriented to person, place, and time. Gait: Gait normal. Deep Tendon Reflexes: Reflex Scores: Patellar reflexes are 2+ on the right side and 2+ on the left side. Achilles reflexes are 2+ on the right side and 2+ on the left side. Assessment and Plan 1. Acute midline low back pain with right-sided sciatica Patient will get x-rays today, provider will send [facility] message with results. Recommend supportive care and hamstring/low back stretching, physical therapy consult. Short term steroid, stop ibuprofen while taking this and add on Tylenol only PRN. Depending on x-ray results, may consider ortho/costume specialist referral if symptoms persist. Follow up with PCP Prn. - XR LUMBAR GENERAL 3V AP/LAT/L5-S1; Future - CONSULT TO PHYSICAL THERAPY; Future - methylPREDNISolone (MEDROL, BAKARI,) 4 mg Dose-Pack; Follow dosing instructions, take with food. Dispense: 21 tablet; Refill: 0 2. Right hip pain - XR HIP GENERAL 3V PELV/AP/LAT RIGHT; Future - CONSULT TO PHYSICAL THERAPY; Future Kelvin Mariscal APRN.AG documented in this encounter [facility] 06-27-2022 Note HNO ID: [id number] Author: Vani Joseph APRN.AG Service: ? Author Type: Nurse Practitioner Type: Progress Notes Filed: 06/27/2022 9:20 AM Note Text: Female Pelvic Medicine AND Reconstructive Surgery Follow-Up Oneyda Eastman is a 76 year old female, who presents for a follow-up of pelvic organ prolapse. HARRIETT on 04/18/2022: Impression: Oneyda Eastman is a 76 year old female with POP, MARCELINO managed with pessary and vaginal atrophy. Plan: - Continue #3 RWS with knob - Continue vaginal estrogen cream twice weekly - Follow up in 3 months for pessary check, sooner if needed History since last visit: Patient reports no problems with pessary. Using vaginal estrogen BIW. Urinary Incontinence: yes, MARCELINO with full bladder Voiding Dysfunction: no Urinary Frequency: no Urinary Urgency: no Prolapse Symptoms: no Defecatory Dysfunction: yes, takes Miralax Fecal Incontinence: yes, rare Abnormal Bleeding: no Pain: no Abnormal Vaginal Discharge: no DIRECTOR OF ACQUISITIONS HISTORY: Last pap: Date:unsure; Last mammogram: Her last mammogram was 06/13/2022. She has no history of an abnormal mammogram LMP: No LMP recorded. Patient is postmenopausal.; Menopause yes: Menstrual history: Menarche: 13; Deliveries: I have confirmed and edited as necessary, the PFSH obtained by others. Vani Joseph APRN.MINER Docking Pilot offered: Patient declines. OBJECTIVE: There were no vitals taken for this visit. General: Well appearing, alert, in no acute distress, well-hydrated, well nourished. Abdomen: Abdomen soft, non-tender Pelvic: Ext. Genitalia: No lesions or other abnormalities Vagina: atrophic epithelium #3 RWS with knob was found with knob facing posteriorly. Pessary was removed and cleansed. Vagina was inspected and found to be normal with no lesions, erosions or discharge. Pessary was replaced without difficulty. Cervix: Normal Urethra: Normal Bimanual: No tenderness, No masses Rectovaginal: Deferred Impression: Oneyda Eastman is a 76 year old female with KEYLA and POP managed with pessary, vaginal atrophy. Plan: - Continue with #3 RWS with knob - Advised patient when she applies vaginal estrogen cream to check knob placement - Continue vaginal estrogen cream twice weekly - Follow up in 3-4 months, sooner as needed I spent a total of 20 minutes on the date of the service which included preparing to see the patient, [id number] patient care, completing clinical documentation, obtaining and/or reviewing separately obtained history, performing a medically appropriate examination, and counseling and educating the patient/family/caregiver. Vani Joseph APRN.[facility] 06-27-2022 History of Present illness Narrative Female Pelvic Medicine & Reconstructive Surgery Follow-Up Oneyda Eastman is a 76 year old female, who presents for a follow-up of pelvic organ prolapse. HARRIETT on 04/18/2022: Impression: Oneyda Eastman is a 76 year old female with POP, MARCELINO managed with pessary and vaginal atrophy. Plan: - Continue #3 RWS with knob - Continue vaginal estrogen cream twice weekly - Follow up in 3 months for pessary check, sooner if needed History since last visit: Patient reports no problems with pessary. Using vaginal estrogen BIW. Urinary Incontinence: yes, MARCELINO with full bladder Voiding Dysfunction: no Urinary Frequency: no Urinary Urgency: no Prolapse Symptoms: no Defecatory Dysfunction: yes, takes Miralax Fecal Incontinence: yes, rare Abnormal Bleeding: no Pain: no Abnormal Vaginal Discharge: no DIRECTOR OF ACQUISITIONS HISTORY: Last pap: Date:unsure; Last mammogram: Her last mammogram was 06/13/2022. She has no history of an abnormal mammogram LMP: No LMP recorded. Patient is postmenopausal.; Menopause yes: Menstrual history: Menarche: 13; Deliveries: I have confirmed and edited as necessary, the PFSH obtained by others. Vani Joseph APRN.CNP Docking Pilot offered: Patient declines. OBJECTIVE: There were no vitals taken for this visit. General: Well appearing, alert, in no acute distress, well-hydrated, well nourished. Abdomen: Abdomen soft, non-tender Pelvic: Ext. Genitalia: No lesions or other abnormalities Vagina: atrophic epithelium #3 RWS with knob was found with knob facing posteriorly. Pessary was removed and cleansed. Vagina was inspected and found to be normal with no lesions, erosions or discharge. Pessary was replaced without difficulty. Cervix: Normal Urethra: Normal Bimanual: No tenderness, No masses Rectovaginal: Deferred Impression: Oneyda Dahlmaria isabel is a 76 year old female with KEYLA and POP managed with pessary, vaginal atrophy. Plan: - Continue with #3 RWS with knob - Advised patient when she applies vaginal estrogen cream to check knob placement - Continue vaginal estrogen cream twice weekly - Follow up in 3-4 months, sooner as needed I spent a total of 20 minutes on the date of the service which included preparing to see the patient, [id number] patient care, completing clinical documentation, obtaining and/or reviewing separately obtained history, performing a medically appropriate examination, and counseling and educating the patient/family/caregiver. Vani Joseph APRN.CNP documented in this encounter [facility] 06-14-2022 Note Patient Outreach (PEDRITO SINGH) ONEYDA EASTMAN ([id number]) 1945 F Date Time Provider Department 06/14/22 FARIDA [place] During your visit today, we recorded the following information about you: Farida Birmingham MA 06/15/2022 3:09 PM Addendum POPULATION HEALTH NAVIGATION OUTREACH Action/I Oneyda LVM Patient declined medicare wellness LVM MYCHART MESSAGE SENT ANNUALMEDICARE WELLNESS EXAM BP CONTROLLED (<130/80) Never done ADVANCE DIRECTIVE DISCUSSION Patient Identified by Name and : NO Outreach Outcome/Action Unable to reach patient: Left message MyChart message sent Did you use a PCP flex slot to schedule this appointment? N/A Reason for Outreach Care Gap or Scheduling/Wellness visits Payer: Payor: MEDICARE / Plan: MEDICARE A AND B / Product Type: Medicare / Care Gap Reviewed:: Annual Wellness visit Controlling Blood Pressure Reminder: Reminder note to check Health Maintenance for items below Health Maintenance items due: SPIROMETRY Never done BP CONTROLLED (<130/80) Never done ADVANCE DIRECTIVE DISCUSSION Never done Navigation Signature: Farida Birmingham MA June 14, 2022 11:00 AM Allergies As of Date: 06/14/2022 (No Known Allergies) Date Reviewed: 04/18/2022 Reviewed by: Vani Joseph APRN.MINER - Fully Assessed Reason for Visit: Population Health Navigation Outreach [3910] Cmt: BATSHEVA BORGES PCSA Prescriptions as of 06/15/2022 - pantoprazole DR (PROTONIX) 40 mg tablet TAKE 1 TABLET DAILY - Fluorouracil 5 % soln apply topically to scalp twice a day for 3 TO 4 WEEKS - potassium chloride ER (K-DUR, KLOR-CON) 20 mEq tablet Take 1 tablet by mouth twice daily. - carvedilol (COREG) 6.25 mg tablet Take 2 tablets by mouth twice daily with meals. - simvastatin (ZOCOR) 40 mg tablet Take 1 tablet by mouth daily at bedtime. - olmesartan-hydroCHLOROthiazide (BENICAR HCT) 40-25 mg per tablet TAKE 1 TABLET DAILY - estradiol (ESTRACE) 0.01 % (0.1 mg/gram) vaginal cream Express 1/2 gram of cream on fingertip and apply cream just inside the vaginal opening qHS x 2 weeks, and then twice weekly - polyethylene glycol 3350 (MIRALAX ORAL) Take by mouth. - aspirin, enteric coated (ECOTRIN LOW STRENGTH) 81 mg EC tablet Take 1 tablet by mouth once daily. - CALCIUM CARBONATE/VITAMIN D2 (CALCIUM + VITAMIN D ORAL) Take by mouth. - gluc thomas/chondro thomas a/vit c/mn(GLUCOSAMINE CHONDROITIN MAXIMUM STRENGTH 500 MG-400 MG CAP) Take one(1) tablet daily. - multivitamins(MULTIPLE VITAMIN TAB) Take one(1) tablet daily. Problem List As Of Date 06/14/2022 Noted Resolved Mixed hyperlipidemia [E78.2] Essential hypertension [I10] GERD (Gastroesophageal Reflux Disease) [K21.9] 03/25/2009 Ischemic colitis, enteritis, or enterocolitis (*03/25/2009 09/28/2017 Diverticulosis [K57.90] 06/03/2009 Degenerative joint disease [M19.90] 12/17/2009 Asthma, mild persistent [J45.30] 12/17/2009 03/18/2020 Hypokalemia [E87.6] 10/04/2010 Cystocele [RIE5661] 06/29/2012 Cervical prolapse [N81.2] 06/29/2012 BPPV (benign paroxysmal positional vertigo) [H8*03/06/2014 Tinnitus [H93.19] 03/06/2014 Hearing loss [H91.90] 03/06/2014 Carpal tunnel syndrome of right wrist [G56.01] 10/27/2017 Basal cell carcinoma (BCC) of skin of neck [C44*08/23/2018 Squamous cell carcinoma in situ (SCCIS) of skin*08/23/2018 Melanoma in situ of torso excluding breast (HCC*03/18/2019 Mild intermittent asthma without complication [*03/18/2020 Osteoarthritis [M19.90] 03/18/2020 Prediabetes [R73.03] 10/22/2021 Tear of medial meniscus of left knee, current [*11/12/2021 11/12/2021 Tear of lateral meniscus of left knee, current *11/12/2021 11/12/2021 Encounter Status:Closed by FARIDA BIRMINGHAM on 06/14/22 [facility] 06-14-2022 Note HNO ID: [id number] Author: Farida Birmingham MA Service: ? Author Type: Bankman Type: Progress Notes Filed: 06/15/2022 3:09 PM Note Text: POPULATION HEALTH NAVIGATION OUTREACH Action/FYI Oneyda LVM Patient declined medicare wellness LVM MYCHART MESSAGE SENT ANNUALMEDICARE WELLNESS EXAM BP CONTROLLED (<130/80) Never done ADVANCE DIRECTIVE DISCUSSION Patient Identified by Name and : NO Outreach Outcome/Action Unable to reach patient: Left message MyChart message sent Did you use a PCP flex slot to schedule this appointment? N/A Reason for Outreach Care Gap or Scheduling/Wellness visits Payer: Payor: MEDICARE / Plan: MEDICARE A AND B / Product Type: Medicare / Care Gap Reviewed:: Annual Wellness visit Controlling Blood Pressure Reminder: Reminder note to check Health Maintenance for items below Health Maintenance items due: SPIROMETRY Never done BP CONTROLLED (<130/80) Never done ADVANCE DIRECTIVE DISCUSSION Never done Navigation Signature: Farida Birmingham MA June 14, 2022 11:00 AM [facility] 06-14-2022 Miscellaneous Notes June 14, 2022 PID: [id number] Oneyda K. Jaren [address] [place] [id number] Dear Ms. Eastman, We are pleased to inform you that the results of your recent breast imaging exam on 06/13/2022 are normal. Early detection of cancer is very important. We also understand recommendations regarding breast cancer screening are controversial. Please discuss with your primary care provider which strategy is best for you and whether a mammogram is right for you. Your imaging studies and report will be kept on file at [facility] as part of your permanent medical record and are available for your continuing care. Thank you for allowing us to help in meeting your health care needs. Sincerely, Dr. Benedict Interpreting Radiologist [facility] (Normal over 40) documented in this encounter [facility] 06-13-2022 Note HNO ID: [id number] Author: RT Luis A(R) Service: ? Author Type: Technologist Type: Progress Notes Filed: 06/13/2022 2:39 PM Note Text: Radiology Service Progress Note PATIENT NAME: Oneyda Eastman DATE OF SERVICE: June 13, 2022 TIME: 2:39 PM PATIENT IDENTITY VERIFICATION COMPLETED USING TWO (2) IDENTIFIERS: Name and Date of confirmed by patient verbally. FALL SCREENING: Has the patient had 2 falls in the last year or 1 fall with injury or currently using an Ambulatory Assistive Device (Walker, Cane, Wheelchair, Crutches, etc.)? No PATIENT GENDER DATA: Female. status: : No status: NO. PATIENT RELEVANT IMPLANT DATA REVIEWED: Not Applicable RADIOLOGY DEPARTMENT: Mammography PERIPHERAL IV DATA: Not applicable SIGNED BY: RT Luis A(R) June 13, 2022 2:39 PM [facility] 06-13-2022 History of Present illness Narrative Radiology Service Progress Note PATIENT NAME: Oneyda Eastman DATE OF SERVICE: June 13, 2022 TIME: 2:39 PM PATIENT IDENTITY VERIFICATION COMPLETED USING TWO (2) IDENTIFIERS: Name and Date of confirmed by patient verbally. FALL SCREENING: Has the patient had 2 falls in the last year or 1 fall with injury or currently using an Ambulatory Assistive Device (Walker, Cane, Wheelchair, Crutches, etc.)? No PATIENT GENDER DATA: Female. status: : No status: NO. PATIENT RELEVANT IMPLANT DATA REVIEWED: Not Applicable RADIOLOGY DEPARTMENT: Mammography PERIPHERAL IV DATA: Not applicable SIGNED BY: RT Luis A(R) June 13, 2022 2:39 PM documented in this encounter [facility] 04-18-2022 Note HNO ID: [id number] Author: Vani Joseph APRN.MINER Service: ? Author Type: Nurse Practitioner Type: Progress Notes Filed: 04/18/2022 12:18 PM Note Text: Female Pelvic Medicine AND Reconstructive Surgery Follow-Up Oneyda Eastman is a 76 year old female, who presents for a follow-up of pelvic organ prolapse. HARRIETT on 01/17/2022: Impression: Oneyda Eastman is a 76 year old female with POP managed with pessary, KEYLA and vaginal discharge. Plan: 1. Incomplete uterovaginal prolapse - Continue #3 ring with support with knob pessary - Educated patient on how to correct knob placement if she notices increase in MARCELINO symptoms - Follow up in 3 months or sooner as needed 2. Mixed stress and urge incontinence - Managed with pessary 3. Vaginal atrophy - Continue vaginal estrogen cream 4. Pessary maintenance - As above #1 5. Vaginal discharge - Vaginal swab sent History since last visit: Patient is here for pessary check, no complaints. Urinary Incontinence: yes, once in a while with sneeze/cough Voiding Dysfunction: no Urinary Frequency: no Urinary Urgency: no Prolapse Symptoms: no, not with pessary in Defecatory Dysfunction: no Fecal Incontinence: yes, once in a while, solid Abnormal Bleeding: no Pain: no Abnormal Vaginal Discharge: yes, slight odor DIRECTOR OF ACQUISITIONS HISTORY: Last pap: Date:unknown, no h/o abnormal per patient; Last mammogram: Her last mammogram was 2021. She has no history of an abnormal mammogram LMP: No LMP recorded. Patient is postmenopausal.; Menopause yes: Menstrual history: Menarche: 12 or 13; Deliveries: I have confirmed and edited as necessary, the PFSH obtained by others. Vani Joseph APRN.MINER Docking Pilot offered: Patient declines. OBJECTIVE: There were no vitals taken for this visit. General: Well appearing, alert, in no acute distress, well-hydrated, well nourished. Abdomen: Abdomen soft, non-tender Pelvic: Ext. Genitalia: No lesions or other abnormalities Vagina: atrophic epithelium #3 RWS was found appropraitely seated in vagina with knob posterior. Erythema noted on anterior wall where knob was. Pessary was replaced without difficulty. Cervix: Normal Urethra: Normal Bimanual: No tenderness, No masses Rectovaginal: Deferred Impression: Oneyda Eastman is a 76 year old female with POP, MARCELINO managed with pessary and vaginal atrophy. Plan: - Continue #3 RWS with knob - Continue vaginal estrogen cream twice weekly - Follow up in 3 months for pessary check, sooner if needed I spent a total of 20 minutes on the date of the service which included preparing to see the patient, [id number] patient care, completing clinical documentation, obtaining and/or reviewing separately obtained history, performing a medically appropriate examination, and counseling and educating the patient/family/caregiver. Vani Joseph APRN.MINER [facility] 04-18-2022 History of Present illness Narrative Female Pelvic Medicine & Reconstructive Surgery Follow-Up Oneyda Eastman is a 76 year old female, who presents for a follow-up of pelvic organ prolapse. HARRIETT on 01/17/2022: Impression: Oneyda Eastman is a 76 year old female with POP managed with pessary, KEYLA and vaginal discharge. Plan: 1. Incomplete uterovaginal prolapse - Continue #3 ring with support with knob pessary - Educated patient on how to correct knob placement if she notices increase in MARCELINO symptoms - Follow up in 3 months or sooner as needed 2. Mixed stress and urge incontinence - Managed with pessary 3. Vaginal atrophy - Continue vaginal estrogen cream 4. Pessary maintenance - As above #1 5. Vaginal discharge - Vaginal swab sent History since last visit: Patient is here for pessary check, no complaints. Urinary Incontinence: yes, once in a while with sneeze/cough Voiding Dysfunction: no Urinary Frequency: no Urinary Urgency: no Prolapse Symptoms: no, not with pessary in Defecatory Dysfunction: no Fecal Incontinence: yes, once in a while, solid Abnormal Bleeding: no Pain: no Abnormal Vaginal Discharge: yes, slight odor DIRECTOR OF ACQUISITIONS HISTORY: Last pap: Date:unknown, no h/o abnormal per patient; Last mammogram: Her last mammogram was 2021. She has no history of an abnormal mammogram LMP: No LMP recorded. Patient is postmenopausal.; Menopause yes: Menstrual history: Menarche: 12 or 13; Deliveries: I have confirmed and edited as necessary, the PFSH obtained by others. Vani Joseph APRN.MINER Docking Pilot offered: Patient declines. OBJECTIVE: There were no vitals taken for this visit. General: Well appearing, alert, in no acute distress, well-hydrated, well nourished. Abdomen: Abdomen soft, non-tender Pelvic: Ext. Genitalia: No lesions or other abnormalities Vagina: atrophic epithelium #3 RWS was found appropraitely seated in vagina with knob posterior. Erythema noted on anterior wall where knob was. Pessary was replaced without difficulty. Cervix: Normal Urethra: Normal Bimanual: No tenderness, No masses Rectovaginal: Deferred Impression: Oneyda Eastman is a 76 year old female with POP, MARCELINO managed with pessary and vaginal atrophy. Plan: - Continue #3 RWS with knob - Continue vaginal estrogen cream twice weekly - Follow up in 3 months for pessary check, sooner if needed I spent a total of 20 minutes on the date of the service which included preparing to see the patient, [id number] patient care, completing clinical documentation, obtaining and/or reviewing separately obtained history, performing a medically appropriate examination, and counseling and educating the patient/family/caregiver. Vani Joseph APRN.CNP documented in this encounter [facility] 03-21-2022 Note HNO ID: [id number] Author: Po Beckham MD Service: ? Author Type: Physician Type: Progress Notes Filed: 03/21/2022 2:23 PM Note Text: Patient presents with: Follow Up Pt presents for follow up htn, GERD, HPI: HTN Longstanidng. White coat hypertension. The patient denies exertional chest pain, shortness of breath, palpitations. adherent to current regimen without side effects from medication. No current symptoms.. home bp in 120s over 60's. Past family and social history reviewed. PAST MEDICAL HISTORY Diagnosis Date Arthritis Basal cell carcinoma Diverticulosis of colon (without mention of hemorrhage) External hemorrhoids without mention of complication Hemorrhage of gastrointestinal tract, unspecified Hyperglycemia Hyperlipidemia Internal hemorrhoids without mention of complication Ischemic colon (HCC) Osteoporosis Unspecified essential hypertension PAST SURGICAL HISTORY Procedure Laterality Date COLONOSCOPY 2006 COLONOSCOPY FLX DX W/COLLJ SPEC WHEN PFRMD 06/03/09 DANDC DIAG AND/OR THERAP, NOT OB HAMMERTOE REVISION, ONE TOE NEUROPLASTY AND/TRANSPOS MEDIAN NRV CARPAL TUNNE Right 11/30/2017 Right carpal tunnel release NEUROPLASTY AND/TRANSPOS MEDIAN NRV CARPAL TUNNE Left 05/31/2018 Left carpal tunnel release PAST SURGICAL HISTORY OF 04/13/2018 Mohl surgery on head TUBAL LIGATION, XCAPSL CTRC RMVL INSJ IO LENS PROSTH W/O ECP Left 12/2012 Cataract Extraction with Femtosecond Laser (LenSx) XCAPSL CTRC RMVL INSJ IO LENS PROSTH W/O ECP Right 01/2013 Cataract Extraction with Femtosecond Laser (LenSx) ALLERGIES Patient has no known allergies. MEDICATIONS Fluorouracil 5 % soln apply topically to scalp twice a day for 3 TO 4 WEEKS olmesartan-hydroCHLOROthiazide (BENICAR HCT) 40-25 mg per tablet TAKE [address] (PROTONIX) 40 mg tablet TAKE 1 TABLET DAILY estradiol (ESTRACE) 0.01 % (0.1 mg/gram) vaginal cream Express 1/2 gram of cream on fingertip and apply cream just inside the vaginal opening qHS x 2 weeks, and then twice weekly polyethylene glycol 3350 (MIRALAX ORAL) Take by mouth. aspirin, enteric coated (ECOTRIN LOW STRENGTH) 81 mg EC tablet Take 1 tablet by mouth once daily. CALCIUM CARBONATE/VITAMIN D2 (CALCIUM + VITAMIN D ORAL) Take by mouth. gluc thomas/chondro thomas a/vit c/mn(GLUCOSAMINE CHONDROITIN MAXIMUM STRENGTH 500 MG-400 MG CAP) Take one(1) tablet daily. multivitamins(MULTIPLE VITAMIN TAB) Take one(1) tablet daily. potassium chloride ER (K-DUR, KLOR-CON) 20 mEq tablet Take 1 tablet by mouth twice daily. carvedilol (COREG) 6.25 mg tablet Take 2 tablets by mouth twice daily with meals. simvastatin (ZOCOR) 40 mg tablet Take 1 tablet by mouth daily at bedtime. fluconazole (DIFLUCAN) 150 mg tablet Take 1 tablet by mouth every 72 hours for 2 doses (Patient not taking: Reported on 03/21/2022) Oxyquinoline-Na Lauryl Sulfate (TRIMO-DICKERSON JELLY) 0.025-0.01 % gel Use 1 Applicatorful vaginally two times a week. FAMILY HISTORY Problem Relation Age of Onset Hypertension Mother Arthritis Mother Heart Mother Hypertension Father Diabetes Father Arthritis Father Heart Father Diabetes Sister Diabetes Daughter Social History Tobacco Use Smoking status: Former Packs/day: 0.25 Years: 10.00 Pack years: 2.50 Types: Cigarettes Quit date: 1980 Years since quittin.1 Smokeless tobacco: Never Tobacco comments: Quit 41 years ago Vaping Use Vaping Use: Never used Substance Use Topics Alcohol use: Yes Comment: ocass Drug use: Never ROS: General: Feels well, no weight changes, fever, chills. HEENT: No sinus congestion, earache, sore throat. Cardiac: No chest pain, palpitations, shortness of breath Resp: No cough, wheeze. GI: No reflux symptoms, food intolerance, bowel changes. : No urinary frequency, dysuria. MS: No pain or joint complaints. Skin: she continues to see derm, has 5-F U treatment on her scalp right nowl PHYSICAL EXAMINATION BP 139/59 Pulse 65 Ht 162.6 cm (5' 4 ) Wt 61.2 kg (135 lb) SpO2 99% BMI 23.17 kg/m? General: Alert and oriented, no distress, pleasant and cooperative. Heart: Regular, normal S1 and S2, no murmurs, rubs, or gallops Lungs: Clear to auscultation bilaterally Abdomen: Benign Extremities: Feet/ankles without edema, posterior tibial pulses full and symmetrical Health Maintenance: SPIROMETRY Never done BP CONTROLLED (<130/80) Never done ADVANCE DIRECTIVE DISCUSSION Never done ANNUAL PCP TEAM CHRONIC DISEASE VISIT due on 03/21/2023 DTAP,TDAP,TD(3 - Td or Tdap) due on 03/06/2025 DIABETES SCREEN due on 03/14/2025 BONE DENSITY Completed INFLUENZA Completed DEPRESSION ASSESSMENT Completed HEPATITIS C SCREENING Completed SHINGRIX VACCINE Completed COVID-19 VACCINE Completed PNEUMOCOCCAL: 65+ Completed Data reviewed Lab Results Component Value Date/Time CHOL 160 03/14/2022 11:21 AM CHOL 170 03/15/2021 11: (more content not included)... [facility] 03-21-2022 History of Present illness Narrative Patient presents with: Follow Up Pt presents for follow up htn, GERD, HPI: HTN Longstanidng. White coat hypertension. The patient denies exertional chest pain, shortness of breath, palpitations. adherent to current regimen without side effects from medication. No current symptoms.. home bp in 120s over 60's. Past family and social history reviewed. PAST MEDICAL HISTORY Diagnosis Date Arthritis Basal cell carcinoma Diverticulosis of colon (without mention of hemorrhage) External hemorrhoids without mention of complication Hemorrhage of gastrointestinal tract, unspecified Hyperglycemia Hyperlipidemia Internal hemorrhoids without mention of complication Ischemic colon (HCC) Osteoporosis Unspecified essential hypertension PAST SURGICAL HISTORY Procedure Laterality Date COLONOSCOPY 2006 COLONOSCOPY FLX DX W/COLLJ SPEC WHEN PFRMD 06/03/09 D&C DIAG &/OR THERAP, NOT OB HAMMERTOE REVISION, ONE TOE NEUROPLASTY &/TRANSPOS MEDIAN NRV CARPAL TUNNE Right 11/30/2017 Right carpal tunnel release NEUROPLASTY &/TRANSPOS MEDIAN NRV CARPAL TUNNE Left 05/31/2018 Left carpal tunnel release PAST SURGICAL HISTORY OF 04/13/2018 Mohl surgery on head TUBAL LIGATION, XCAPSL CTRC RMVL INSJ IO LENS PROSTH W/O ECP Left 12/2012 Cataract Extraction with Femtosecond Laser (LenSx) XCAPSL CTRC RMVL INSJ IO LENS PROSTH W/O ECP Right 01/2013 Cataract Extraction with Femtosecond Laser (LenSx) ALLERGIES Patient has no known allergies. MEDICATIONS Fluorouracil 5 % soln apply topically to scalp twice a day for 3 TO 4 WEEKS olmesartan-hydroCHLOROthiazide (BENICAR HCT) 40-25 mg per tablet TAKE [address] (PROTONIX) 40 mg tablet TAKE 1 TABLET DAILY estradiol (ESTRACE) 0.01 % (0.1 mg/gram) vaginal cream Express 1/2 gram of cream on fingertip and apply cream just inside the vaginal opening qHS x 2 weeks, and then twice weekly polyethylene glycol 3350 (MIRALAX ORAL) Take by mouth. aspirin, enteric coated (ECOTRIN LOW STRENGTH) 81 mg EC tablet Take 1 tablet by mouth once daily. CALCIUM CARBONATE/VITAMIN D2 (CALCIUM + VITAMIN D ORAL) Take by mouth. gluc thomas/chondro thomas a/vit c/mn(GLUCOSAMINE CHONDROITIN MAXIMUM STRENGTH 500 MG-400 MG CAP) Take one(1) tablet daily. multivitamins(MULTIPLE VITAMIN TAB) Take one(1) tablet daily. potassium chloride ER (K-DUR, KLOR-CON) 20 mEq tablet Take 1 tablet by mouth twice daily. carvedilol (COREG) 6.25 mg tablet Take 2 tablets by mouth twice daily with meals. simvastatin (ZOCOR) 40 mg tablet Take 1 tablet by mouth daily at bedtime. fluconazole (DIFLUCAN) 150 mg tablet Take 1 tablet by mouth every 72 hours for 2 doses (Patient not taking: Reported on 03/21/2022) Oxyquinoline-Na Lauryl Sulfate (TRIMO-DICKERSON JELLY) 0.025-0.01 % gel Use 1 Applicatorful vaginally two times a week. FAMILY HISTORY Problem Relation Age of Onset Hypertension Mother Arthritis Mother Heart Mother Hypertension Father Diabetes Father Arthritis Father Heart Father Diabetes Sister Diabetes Daughter Social History Tobacco Use Smoking status: Former Packs/day: 0.25 Years: 10.00 Pack years: 2.50 Types: Cigarettes Quit date: 1980 Years since quittin.1 Smokeless tobacco: Never Tobacco comments: Quit 41 years ago Vaping Use Vaping Use: Never used Substance Use Topics Alcohol use: Yes Comment: ocass Drug use: Never ROS: General: Feels well, no weight changes, fever, chills. HEENT: No sinus congestion, earache, sore throat. Cardiac: No chest pain, palpitations, shortness of breath Resp: No cough, wheeze. GI: No reflux symptoms, food intolerance, bowel changes. : No urinary frequency, dysuria. MS: No pain or joint complaints. Skin: she continues to see derm, has 5-F U treatment on her scalp right nowl PHYSICAL EXAMINATION BP 139/59 Pulse 65 Ht 162.6 cm (5' 4 ) Wt 61.2 kg (135 lb) SpO2 99% BMI 23.17 kg/m General: Alert and oriented, no distress, pleasant and cooperative. Heart: Regular, normal S1 and S2, no murmurs, rubs, or gallops Lungs: Clear to auscultation bilaterally Abdomen: Benign Extremities: Feet/ankles without edema, posterior tibial pulses full and symmetrical Health Maintenance: SPIROMETRY Never done BP CONTROLLED (<130/80) Never done ADVANCE DIRECTIVE DISCUSSION Never done ANNUAL PCP TEAM CHRONIC DISEASE VISIT due on 03/21/2023 DTAP,TDAP,TD(3 - Td or Tdap) due on 03/06/2025 DIABETES SCREEN due on 03/14/2025 BONE DENSITY Completed INFLUENZA Completed DEPRESSION ASSESSMENT Completed HEPATITIS C SCREENING Completed SHINGRIX VACCINE Completed COVID-19 VACCINE Completed PNEUMOCOCCAL: 65+ Completed Data reviewed Lab Results Component Value Date/Time CHOL 160 03/14/2022 11:21 AM CHOL 170 03/15/2021 11:34 AM CHOL 160 03/09/2020 11:17 AM HDL 46 03/14/2022 11:21 AM HDL 48 03/15/2021 11:34 AM HDL 48 03/09/2020 11:17 AM LDL 85 03/14/2022 11:21 AM LDL 97 03/15/2021 11:34 AM LDL 86 03/09/2020 11:17 AM HBA1C 5.6 03/14/2022 11:21 AM HBA1C 5.7 (H) 03/15/2021 11:34 AM Assessment/Plan: (R73.03) Prediabetes (primary encounter diagnosis) Comment: she has maintained low prediates range on glucose , normal on A1c. Plan: maintain surveillance (I10) White coat syndrome with diagnosis of hypertension Comment: home bps are good. Plan: potassium chloride ER (K-DUR, KLOR-CON) 20 mEq tablet Continue (E78.2) Mixed hyperlipidemia Comment: stable on regimen Plan: simvastatin (ZOCOR) 40 mg tablet (H81.10) Benign paroxysmal positional vertigo, unspecified laterality Comment: sporadic symptoms. Plan: noted for record. No additional treatment (L98.9) Precancerous skin lesion Comment: seeing derm Plan: maintain 5 F U (Z12.31) Screening mammogram for breast cancer Comment: routine Plan: LILY SCREENING (I10) Essential hypertension Comment: adequate control outside office Plan: carvedilol (COREG) 6.25 mg tablet No change (Z23) COVID-19 vaccine administered Comment: due Plan: PFIZER-BIONTECH COVID-19 BIVALENT BOOSTER VACCINE, AGE 12+ YR, CANCELED: PFIZER-BIONTECH COVID-19 PRIMARY SERIES VACCINE, AGE 12+ YR Agreeable. Requested Prescriptions Signed Prescriptions Disp Refills potassium chloride ER (K-DUR, KLOR-CON) 20 mEq tablet 180 tablet 3 Sig: Take 1 tablet by mouth twice daily. carvedilol (COREG) 6.25 mg tablet 360 tablet 3 Sig: Take 2 tablets by mouth twice daily with meals. simvastatin (ZOCOR) 40 mg tablet 90 tablet 3 Sig: Take 1 tablet by mouth daily at bedtime. RTO: annual if all is well, continue the home bp checks. Po Beckham MD documented in this encounter [facility] 03-09-2022 Miscellaneous Notes Last appointment: 09-03-21 Next appointment: 03-21-22 Pharmacy verified in Epic. Refill(s) requested: Requested Prescriptions Pending Prescriptions Disp Refills olmesartan-hydroCHLOROthiazide (BENICAR HCT) 40-25 mg per tablet [Pharmacy Med Name: OLMESARTAN/HCTZ TABS 40/25MG] 90 tablet 3 Sig: TAKE 1 TABLET DAILY Order(s) pended. Please advise. Naomie Doyle MA, BLOW DOWN OPERATOR documented in this encounter [facility] 03-08-2022 Note Patient Outreach (IN [facility]) ONEYDA EASTMAN ([id number]) 1945 F Date Time Provider Department 03/08/22 PO BECKHAM During your visit today, we recorded the following information about you: Allergies As of Date: 03/08/2022 (No Known Allergies) Date Reviewed: 01/17/2022 Reviewed by: Vani Joseph APRN.MINER - Fully Assessed Visit Diagnosis:Medication management [Z79.899] Order(s):CBC [SQCBC] Order #: [id number] FUTURE SCHEDULE LAB TESTING [[id number]] Order #: [id number] FUTURE SCHEDULE LAB TESTING [[id number]] Order #: [id number] FUTURE Prescriptions as of 03/11/2022 - olmesartan-hydroCHLOROthiazide (BENICAR HCT) 40-25 mg per tablet TAKE 1 TABLET DAILY - pantoprazole DR (PROTONIX) 40 mg tablet TAKE 1 TABLET DAILY - fluconazole (DIFLUCAN) 150 mg tablet Take 1 tablet by mouth every 72 hours for 2 doses - estradiol (ESTRACE) 0.01 % (0.1 mg/gram) vaginal cream Express 1/2 gram of cream on fingertip and apply cream just inside the vaginal opening qHS x 2 weeks, and then twice weekly - Oxyquinoline-Na Lauryl Sulfate (TRIMO-DICKERSON JELLY) 0.025-0.01 % gel Use 1 Applicatorful vaginally two times a week. - potassium chloride ER (K-DUR, KLOR-CON) 20 mEq tablet Take 1 tablet by mouth twice daily. - carvedilol (COREG) 6.25 mg tablet Take 2 tablets by mouth twice daily with meals. - simvastatin (ZOCOR) 40 mg tablet Take 1 tablet by mouth daily at bedtime. - polyethylene glycol 3350 (MIRALAX ORAL) Take by mouth. - aspirin, enteric coated (ECOTRIN LOW STRENGTH) 81 mg EC tablet Take 1 tablet by mouth once daily. - CALCIUM CARBONATE/VITAMIN D2 (CALCIUM + VITAMIN D ORAL) Take by mouth. - gluc thomas/chondro thomas a/vit c/mn(GLUCOSAMINE CHONDROITIN MAXIMUM STRENGTH 500 MG-400 MG CAP) Take one(1) tablet daily. - multivitamins(MULTIPLE VITAMIN TAB) Take one(1) tablet daily. Problem List As Of Date 03/08/2022 Noted Resolved Mixed hyperlipidemia [E78.2] Essential hypertension [I10] GERD (Gastroesophageal Reflux Disease) [K21.9] 03/25/2009 Ischemic colitis, enteritis, or enterocolitis (*03/25/2009 09/28/2017 Diverticulosis [K57.90] 06/03/2009 Degenerative joint disease [M19.90] 12/17/2009 Asthma, mild persistent [J45.30] 12/17/2009 03/18/2020 Hypokalemia [E87.6] 10/04/2010 Cystocele [WZE4334] 06/29/2012 Cervical prolapse [N81.2] 06/29/2012 BPPV (benign paroxysmal positional vertigo) [H8*03/06/2014 Tinnitus [H93.19] 03/06/2014 Hearing loss [H91.90] 03/06/2014 Carpal tunnel syndrome of right wrist [G56.01] 10/27/2017 Basal cell carcinoma (BCC) of skin of neck [C44*08/23/2018 Squamous cell carcinoma in situ (SCCIS) of skin*08/23/2018 Melanoma in situ of torso excluding breast (HCC*03/18/2019 Mild intermittent asthma without complication [*03/18/2020 Osteoarthritis [M19.90] 03/18/2020 Prediabetes [R73.03] 10/22/2021 Tear of medial meniscus of left knee, current [*11/12/2021 11/12/2021 Tear of lateral meniscus of left knee, current *11/12/2021 11/12/2021 Encounter Status:Closed by PAMELLA TURNERUSER on 03/11/22 [facility] 01-18-2022 Miscellaneous Notes Patient's vaginal swab positive for jono. States last treatment with single dose of diflucan did not improve symptoms. Treatment with diflucan x2 sent to pharmacy. Called patient, verified name and date of . Reviewed culture and r/b/a of treatment of diflucan. Advised patient to let office know if her symptoms persist after treatment and can try topical cream. Patient verbalized understanding, was appreciative of the call. The following approved medication requests have been transmitted electronically. Requested Prescriptions Signed Prescriptions Disp Refills fluconazole (DIFLUCAN) 150 mg tablet 2 tablet 0 Sig: Take 1 tablet by mouth every 72 hours for 2 doses Authorizing Provider: VANI JOSEPH APRN.CNP documented in this encounter [facility] 01-05-2022 History of Present illness Narrative POPULATION HEALTH NAVIGATION OUTREACH Action/I Patient notified lab orders are filed. Spoke with Tin. Scheduled follow up visit She will labs done a week before her appointment at [place] ANNUAL MEDICARE WELLNESS pt declined AMW BP CONTROLLED (<130/80) Never done ADVANCE DIRECTIVE DISCUSSION Never done Pt identified by name and : YES, via phone Outreach Outcome/Action Spoke to patient or caregiver: Patient scheduled Did you use a PCP flex slot to schedule this appointment? N/A Reason for Outreach Care Gap or Scheduling/Wellness visits Payer: Payor: MEDICARE / Plan: MEDICARE A AND B / Product Type: Medicare / Care Gap Reviewed:: Follow-up appointment Controlling Blood Pressure Reminder: Reminder note to check Health Maintenance for items below Health Maintenance items due: SPIROMETRY Never done BP CONTROLLED (<130/80) Never done ADVANCE DIRECTIVE DISCUSSION Never done DEPRESSION ASSESSMENT Never done COVID-19 VACCINE(5 - Booster for Pfizer series) due on 10/29/2021 Message Sent to Practice: No Navigation Signature: Farida Birmingham MA January 05, 2022 1:03 PM documented in this encounter [facility] 11-19-2021 History of Present illness Narrative POST OP Ann Andrade PA-C Department of Orthopaedics Orthopaedics [address] [place] [id number] Dept: [phone] Ms. Eastman presents today for her 7-10 day visit S/P left knee arthroscopic partial meniscectomy. DOS: 11/12/2021 History: her pain intensity is 2/10. Pain has been controlled with advil and tylenol. The patient denies swelling, warmth, discharge, drainage, fevers, chills, sweats. She reports compliance jose hose. She reports no change in past medical & surgical history, medications, allergies, social history, family history and review of systems since last visit. Radiographs: not applicable Physical Examination: Appropriate postop appearance No evidence of erythema, warmth, discharge or drainage Incision clean/dry/intact Steri-strips intact ROM: 0-110 Positive EHL, FHL, AT, GS, Quads, and HS Positive distal pulses Negative Joann's, calf tenderness or palpable cords Procedure: Steri-strips removed, incisions examined. Steri-strips placed over incisions. Plan: Progressing as expected in the immediate post operative period. Post op care discussed, all questions answered. Follow up in 4 weeks for repeat clinical evaluation with Dr. Nj. Ann Andrade PA-C documented in this encounter [facility] 11-12-2021 Note HNO ID: [id number] Author: Caryn Lomeli APRN.PIPE CUTTER Service: Anesthesiology Author Type: Nurse Dry Mill Operator Type: Anesthesia Procedure Notes Filed: 11/12/2021 12:29 PM Note Text: ANESTHESIOLOGY PROCEDURE NOTE Airway General Information Procedure Start Time/Medication Administration: 11/12/2021 12:13 PM Patient location during procedure: OR Timeout Performed Pre-procedure: timeout performed Consent Obtained: Yes Patient identity confirmed: arm band and patient Staffing PIPE CUTTER: Caryn Lomeli APRN.PIPE CUTTER Performed by: MAGDALENA Indications and Patient Condition Indications for airway management: anesthesia Preoxygenated: yes anesthesia circuit Patient position: sniffing Method: asleep Cricoid Pressure: No Manual In-Line Stabilization: No Difficult Mask: No Final Airway Details Final airway type: supraglottic airway Number of attempts at approach: 1 Ventilation between attempts: none Final Supraglottic Airway: i-gel Size 3 Seal Adequate: yes Failed airway: no Unrecognized esophageal intubation: no Airway not difficult SIGNATURE: Caryn Lomeli APRN.CRNA PATIENT NAME: Oneyda Eastman DATE: November 12, 2021 TIME: 12:28 PM CSN: [id number] [facility] documented as of this encounter (statuses as of 11/19/2021) [facility] History of Past illness Narrative* Problem Noted Date Resolved Date Tear of medial meniscus of left knee, current 11/12/2021 Tear of lateral meniscus of left knee, current 0 11/12/2021 11/12/2021 Asthma, mild persistent 12/17/2009 03/18/19 21 Ischemic colitis, enteritis, or enterocolitis 09/28/2017 documented as of this encounter (statuses as of 01/11/2022) [facility] History of Past illness Narrative* Problem Noted Date Resolved Date Tear of medial meniscus of left knee, current 11/12/2021 Tear of lateral meniscus of left knee, current 0 11/12/2021 11/12/2021 Asthma, mild persistent 12/17/2009 03/18/19 21 Ischemic colitis, enteritis, or enterocolitis 09/28/2017 documented as of this encounter (statuses as of 01/18/2022) [facility] of Past illness Narrative* Problem Noted Date Resolved Date Tear of medial meniscus of left knee, current 11/12/2021 Tear of lateral meniscus of left knee, current 0 11/12/2021 11/12/2021 Asthma, mild persistent 12/17/2009 03/18/19 21 Ischemic colitis, enteritis, or enterocolitis 09/28/2017 documented as of this encounter (statuses as of 03/09/2022) [facility] of Past illness Narrative* Problem Noted Date Resolved Date Tear of medial meniscus of left knee, current 11/12/2021 Tear of lateral meniscus of left knee, current 0 11/12/2021 11/12/2021 Asthma, mild persistent 12/17/2009 03/18/19 21 Ischemic colitis, enteritis, or enterocolitis 09/28/2017 documented as of this encounter (statuses as of 03/11/2022) [facility] of Past illness Narrative* Problem Noted Date Resolved Date Tear of medial meniscus of left knee, current 11/12/2021 Tear of lateral meniscus of left knee, current 0 11/12/2021 11/12/2021 Asthma, mild persistent 12/17/2009 03/18/19 21 Ischemic colitis, enteritis, or enterocolitis 09/28/2017 documented as of this encounter (statuses as of 03/21/2022) [facility] of Past illness Narrative* Problem Noted Date Resolved Date Tear of medial meniscus of left knee, current 11/12/2021 Tear of lateral meniscus of left knee, current 0 11/12/2021 11/12/2021 Asthma, mild persistent 12/17/2009 03/18/19 21 Ischemic colitis, enteritis, or enterocolitis 09/28/2017 documented as of this encounter (statuses as of 04/18/2022) [facility] of [facility] illness Narrative* Problem Noted Date Resolved Date Tear of medial meniscus of left knee, current 11/12/2021 Tear of lateral meniscus of left knee, current 0 11/12/2021 11/12/2021 Asthma, mild persistent 12/17/2009 03/18/19 21 Ischemic colitis, enteritis, or enterocolitis 09/28/2017 documented as of this encounter (statuses as of 06/16/2022) [facility] Narrative* Problem Noted Date Resolved Date Tear of medial meniscus of left knee, current 11/12/2021 Tear of lateral meniscus of left knee, current 0 11/12/2021 11/12/2021 Asthma, mild persistent 12/17/2009 03/18/19 21 Ischemic colitis, enteritis, or enterocolitis 09/28/2017 documented as of this encounter (statuses as of 06/27/2022) [facility] of [facility] illness Narrative* Problem Noted Date Diagnosed Date Resolved Date Tear of medial meniscus of left knee, current 11/13/19 22 11/12/2021 Tear of lateral meniscus of left knee, current 11/12/2021 11/12/2021 Asthma, mild persistent 12/17/2009 02/0 04/2020 Ischemic colitis, enteritis, or enterocolitis 03/25/19 10 09/28/2017 documented as of this encounter (statuses as of 09/08/2022) [facility] History of Past illness Narrative* Problem Noted Date Diagnosed Date Resolved Date Tear of medial meniscus of left knee, current 11/13/19 22 11/12/2021 Tear of lateral meniscus of left knee, current 11/12/2021 11/12/2021 Asthma, mild persistent 12/17/2009 02/0 04/2020 Ischemic colitis, enteritis, or enterocolitis 03/25/19 10 09/28/2017 documented as of this encounter (statuses as of 09/29/2022) [facility] History of Past illness Narrative* Problem Noted Date Diagnosed Date Resolved Date Tear of medial meniscus of left knee, current 11/13/19 22 11/12/2021 Tear of lateral meniscus of left knee, current 11/12/2021 11/12/2021 Asthma, mild persistent 12/17/2009 02/0 04/2020 Ischemic colitis, enteritis, or enterocolitis 03/25/19 09/28/2017 documented as of this encounter (statuses as of 12/18/2022) [facility] History of Past illness Narrative* Problem Noted Date Diagnosed Date Resolved Date Tear of medial meniscus of left knee, current 11/13/19 22 11/12/2021 Tear of lateral meniscus of left knee, current 11/12/2021 11/12/2021 Asthma, mild persistent 12/17/2009 02/0 04/2020 Ischemic colitis, enteritis, or enterocolitis 03/25/19 10 09/28/2017 documented as of this encounter (statuses as of 12/18/2022) [facility] History of Past illness Narrative* Problem Noted Date Diagnosed Date Resolved Date Tear of medial meniscus of left knee, current 11/13/19 22 11/12/2021 Tear of lateral meniscus of left knee, current 11/12/2021 11/12/2021 Asthma, mild persistent 12/17/2009/0 04/2020 Ischemic colitis, enteritis, or enterocolitis 03/25/1909/28/2017 documented as of this encounter (statuses as of 02/03/2023) [facility] Instructions* Patient Instructions* Maritza Gastelum PA-C - 10/22/2021 11:37 AM EDT PATIENT PREOPERATIVE INSTRUCTIONS Kevin Nj MD has scheduled you for your procedure at this surgery center: [facility]: [phone] -- [address] [address]. Please read below carefully for your personalized instructions. Dietary Restrictions: - No solid food after midnight. - You may have 12 ounces of clear liquids (water, clear juices such as apple juice or gatorade, carbonated beverages, clear tea, black coffee, jello) until 2 hours before scheduled arrival at facility. Medications: Unless instructed differently below, stay on all of your medications until your surgery. Approved medications to take the morning of surgery with a sip of water: carvedilol, pantoprazole. DO NOT TAKE YOUR OLMESARTAN-HCTZ THE NIGHT BEFORE OR MORNING OF SURGERY If you start any new medications after today's visit, please contact the surgeon's office. Blood Thinning Medications: - Stop NSAIDS (Ibuprofen, Advil, Aleve, Motrin, Celebrex, Mobic, etc.) 7 days before surgery, as directed by your surgeon. - Stop Aspirin 7 days before surgery, as directed by your surgeon. - Stop Vitamin E, ALL multi-vitamins, herbals and dietary supplements 7 days before surgery. - You may take Tylenol (Acetaminophen) or any of your pain medications that do not contain aspirin or NSAIDS as needed. Important Reminders: - Candy, mints, and tobacco products are NOT permitted the morning of surgery. - Hearing aids, dentures and glasses may be worn the morning of surgery. - NO jewelry, body piercings, makeup, hairpins or contacts are to be worn the day of surgery. If you develop symptoms such as a fever, cold, or flu, or have other changes to your health within TWO DAYS of scheduled surgery or the morning of surgery, please contact the surgery center above. Personal Belongings: -Please have photo ID and insurance cards. -If you do not have a copy of advance directives on file with us, please bring a copy with you on the day of surgery. - Leave ALL valuables and money at home or with family members. For Outpatient Procedures: - YOU MUST HAVE A RESPONSIBLE DAILY SALES AUDIT CLERK TAKE YOU HOME. A ATTENDANCE SECRETARY OR OTR FLATBED DRIVER CANNOT BE MADE A RESPONSIBLE DAILY SALES AUDIT CLERK. - We recommend that a responsible person stays with you overnight to take care of you. - You cannot stay in a hotel alone after outpatient surgery. You will not be permitted to have yoursurgery, if you do not have someone to take care of you. Arrival Time for Surgery: - The Surgery Center or hospital where you are having surgery will call the afternoon before surgery (or Monday for Monday surgery) with a scheduled arrival time. - If you have not heard by 4 pm, please contact the surgery center above. Please be aware that emergency situations arise, which may delay or change your surgical time. If this happens, we will notify you as soon as possible and regret any inconvenience. If you already have an Advance Directive, please fax a copy to [phone] or email to for it to be added to your chart. If you do not have an Advance Directive, you can find the appropriate form and more information at [email or web address]. We recommend that youcomplete the Advance Directive form found on the website and bring it with you the day of your surgery. It can be witnessed and scanned into your chart that day. documented [facility] History and physical note * Maritza Gastelum PA-C - 10/22/2021 11:20 AM EDT HISTORY AND PHYSICAL EXAMINATION SERVICE DATE: 10/22/2021 SERVICE TIME: 11:33 AM PRIMARY CARE PHYSICIAN: Po Beckham MD REASON FOR VISIT: Oneyda Eastman is a 76 year old female who is scheduled for ARTHROSCOPY KNEE MENISCECTOMY MEDIAL AND LATERAL WITH MENISCAL SHAVING at the request of Dr. Kevin Nj for consultation. My final recommendation will be communicated back to the requesting physician by way of shared medical record or letter. 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 Pt has history of left knee pain. Symptoms have been present for 8-9 months. Denies injury. She was given a cortisone injection which provided some relief of pain but pain returned. A 2nd cortisone injection was given which did not provide pain relief. She was found to have lateral meniscus tear and medial meniscal tear. Above procedure recommended to manage symptoms. Procedure scheduled on 11/12/2021 at [facility]. PAST MEDICAL HISTORY Diagnosis Date Arthritis Basal cell carcinoma Diverticulosis of colon (without mention of hemorrhage) External hemorrhoids without mention of complication Hemorrhage of gastrointestinal tract, unspecified Hyperglycemia Hyperlipidemia Internal hemorrhoids without mention of complication Ischemic colon (HCC) Osteoporosis Unspecified essential hypertension PAST SURGICAL HISTORY Procedure Laterality Date COLONOSCOPY 2006 COLONOSCOPY FLX DX W/COLLJ SPEC WHEN PFRMD 06/03/09 D&C DIAG &/OR THERAP, NOT OB HAMMERTOE REVISION, ONE TOE NEUROPLASTY &/TRANSPOS MEDIAN NRV CARPAL TUNNE Right 11/30/2017 Right carpal tunnel release NEUROPLASTY &/TRANSPOS MEDIAN NRV CARPAL TUNNE Left 05/31/2018 Left carpal tunnel release PAST SURGICAL HISTORY OF 04/13/2018 Mohl surgery on head TUBAL LIGATION, XCAPSL CTRC RMVL INSJ IO LENS PROSTH W/O ECP Left 12/2012 Cataract Extraction with Femtosecond Laser (LenSx) XCAPSL CTRC RMVL INSJ IO LENS PROSTH W/O ECP Right 01/2013 Cataract Extraction with Femtosecond Laser (LenSx) FAMILY HISTORY Problem Relation Age of Onset Hypertension Mother Arthritis Mother Heart Mother Hypertension Father Diabetes Father Arthritis Father Heart Father Diabetes Sister Diabetes Daughter SOCIAL HISTORY: Social History Tobacco Use Smoking status: Former Packs/day: 0.25 Years: 10.00 Pack years: 2.50 Types: Cigarettes Quit date: 1980 Years since quittin.7 Smokeless tobacco: Never Tobacco comments: Quit 41 years ago Vaping Use Vaping Use: Never used Substance Use Topics Alcohol use: Yes Comment: ocass Drug use: Never MEDICATIONS: Prior to Admission medications as of 10/22/21 1139 Medication Sig Last Dose Taking estradiol (ESTRACE) 0.01 % (0.1 mg/gram) vaginal cream Express 1/2 gram of cream on fingertip and apply cream just inside the vaginal opening qHS x 2 weeks, and then twice weekly Taking Yes potassium chloride ER (K-DUR, KLOR-CON) 20 mEq tablet Take 1 tablet by mouth twice daily. Taking Yes carvedilol (COREG) 6.25 mg tablet Take 2 tablets by mouth twice daily with meals. Taking Yes simvastatin (ZOCOR) 40 mg tablet Take 1 tablet by mouth daily at bedtime. Taking Yes Olmesartan-hydroCHLOROthiazide (BENICAR HCT) 40-25 mg per tablet Take 1 tablet by mouth once daily.Taking Yes pantoprazole DR (PROTONIX) 40 mg tablet Take 1 tablet by mouth once daily. Taking Yes polyethylene glycol 3350 (MIRALAX ORAL) Take by mouth. Taking Yes aspirin, enteric coated (ECOTRIN LOW STRENGTH) 81 mg EC tablet Take 1 tablet by mouth once daily. Taking Yes CALCIUM CARBONATE/VITAMIN D2 (CALCIUM + VITAMIN D ORAL) Take by mouth. Taking Yes gluc thomas/chondro thomas a/vit c/mn(GLUCOSAMINE CHONDROITIN MAXIMUM STRENGTH 500 MG- 400 MG CAP) Take one(1) tablet daily. Taking Yes multivitamins(MULTIPLE VITAMIN TAB) Take one(1) tablet daily. Taking Yes Oxyquinoline-Na Lauryl Sulfate (TRIMO-DICKERSON JELLY) 0.025-0.01 % gel Use 1 Applicatorful vaginally twotimes a week. Patient not taking: No sig reported Not Taking No medication comments found. CURRENT ALLERGIES: ALLERGIES No Known Allergies COVID VACCINATION STATUS: Fully vaccinated REVIEW OF SYSTEMS: General: No weight loss, malaise or fevers. Neuro: No history of TIA's, stroke, MUSIC SOUND LIGHT TECHNICIAN tumor, impaired sensorium, hemiplegia, paraplegia or quadraplegia. No neurological symptoms or problems. Respiratory: +Former smoker +Remote h/o asthma - dx in , was previously on inhalers, states sx only flared in fall when the weather changed, has not used inhaler in years. Negative for Current cough, URI < 2 weeks Cardiovascular: +HTN +HLD Negative for Recent NE, Arrhythmia, CHF, Valvular Heart Disease, DVT/PE GI: +GERD Negative for Hepatitis, Liver disease, ETOH > 2 drinks / day : No history of dysuria, frequency or incontinence,, stones or chronic kidney disease Endocrine: +Prediabetes - A1C 5.7 in 02/2021. Denies thyroid problems. Denies PO steroids in the past 30 days. Hematology: +ASA 81 mg - preventative. Denies bleeding or clotting disorders. Oncology: +H/o skin cancer Psych: No history of psychiatric symptoms or problems. Musculoskeletal: See HPI Skin: Negative for lesions, rash and itching. Objective PHYSICAL EXAM: VITALS: BP 166/78 Pulse 66 Temp 98.1 Resp 18 Ht 5' 4 (1.63m) Wt 134 lb (60.8kg) SpO2 98% BMI22.99 kg/(m^2). General: Alert and oriented, No acute distress, Healthy appearance Skin: Normal color, no rash, no lesions. HEENT: EOM, pupils equal, round and reactive., No carotid bruits Cardiovascular: Normal S1 & S2, no rubs, murmurs or gallops. Pulse regular. Lungs: Normal breath sounds, no wheezes or crackles. Extremities: No deformity, no edema or tenderness, no joint swelling or clubbing. Neurological: Normal cognition and motor skills. Gait normal. Pulses: Radial pulses; left 2+ / right 2+. Diagnostic tests reviewed for today's visit: Lab Value Units Date High Low HB No results within date range. HCT No results within date range. WBC No results within date range. PLT No results within date range. NA No results within date range. K No results within date range. GLUC No results within date range. BUN No results within date range. CREAT No results within date range. PTSEC No results within date range. INR No results within date range. APTT No results within date range. ALT No results within date range. AST No results within date range. TBILI No results within date range. TSH No results within date range. Lab Value Units Date High Low HCGQT No results within date range. UHCG No results within date range. HCG, BODY* No results within date range. Lab Value Units Date High Low ABORHD No results within date range. ABSCREEN No results within date range. Hemoglobin A1C (%) Date Value 03/15/2021 5.7 03/09/2020 6.0 03/12/2018 5.8 03/08/2017 5.8 HBA1C, Gwyn (%) Date Value 11/22/2010 5.8 No results found for this or any previous visit (from the past 8760 hour(s)). No results found for this or any previous visit (from the past 64406 hour(s)). PENDING Assessment/Plan Essential hypertension Assessment: Suboptimal control on carvedilol and olmesartan-HCTZ. BP today 166/78. BMP pending. Mixed hyperlipidemia Assessment: Stable, on RX. Mild intermittent asthma without complication Assessment: Diagnosed in , was previously on inhalers, states sx only flared in the fall when the weather changed, pt reports that she has not used inhalers in years. Lungs CTAB, SpO2 98% on RA. GERD (Gastroesophageal Reflux Disease) Assessment: Stable, sx managed on Protonix. Prediabetes Assessment: A1C 5.7 in 02/2021. METS: Climb a flight of stairs or walk up a hill (5.50 METs) Patient denies any chest pain or undue shortness of breath with the above physical activity. ASA Class: 3 ANESTHESIA FINDINGS: Intubation History: No history of difficult intubation Significant Anesthesia Considerations: None Airway Exam: General: Normal appearance Mallampati Score is CLASS II ULBT: Class I - Lower incisors can bite the upper lip above the syeda line Neck: FROM, Distance from hyoid to mentum during neck extension is NOT 3 finger breaths Mouth: Normal tongue size and Mouth opening greater than 2 finger breaths Dentition: Caps/crowns Airway History: No abnormal airway history STOP BANG Score: Criteria: Hypertension Age over 50 (76 year old) Score = 2 PLAN This patient is optimally prepared for surgery pending LABS. CONSULTS: Patient does not require consults for optimization at this time. The Following Tests/Procedures Have Been Initiated: Orders Placed This Encounter BMP Standing Status: Future Number of Occurrences: 1 Standing Expiration Date: 12/22/2021 Planned Anesthetic: Per anesthesia choice Instructions Given to Patient: Instructions located in the after visit summary. Patient given verbal and written preop instructions and voices comprehension and compliance. SIGNATURE: Maritza Gastelum PA-C PATIENT NAME: Oneyda Eastman DATE: October 19, 2021 TIME: 1:17 PM documented in this encounterU[facility] Center08-30-2022 Miscellaneous Notes* Telephone Encounter - Francisca Weir RN - 10/12/2021 9:57 AM EDT Called patient. Verified name/. Patient notified of positive culture and treatment sent to preferred pharmacy. Plans to picking belt operator andtake today. Advised to call with any further questions or concerns. Francisca Weir RN October 12, 2021 10:00 AM * Telephone Encounter - Vani Joseph APRN.CNP - 10/12/2021 8:22 AM EDT Patient's vaginal culture positive for jono. Treatment with diflucan sent to pharmacy. The following approved medication requests have been transmitted electronically. Requested Prescriptions Signed Prescriptions Disp Refills fluconazole (DIFLUCAN) 150 mg tablet 1 tablet 0 Sig: Take 1 tablet by mouth one time only for 1 dose. Authorizing Provider: VANI JOSEPH APRN.CNP documented in this encounterUc Medical Center08-22-2022 History of Present illness Narrative* Kevin Nj MD - 10/04/2021 11:28 AM EDT Patient returns to see me for her left knee. Briefly, we have seen her now for her left knee. We had suspicions that this was meniscal tearing. Her x-rays did not show any overt arthritis. She has received 2 cortisone injections without permanent improvement. She continues complain of pain and stiffness and swelling. ROS Musculoskeletal: See history of present illness. Neurological: Denies numbness and tingling in upper or lower extremities Social History Tobacco Use Smoking status: Former Packs/day: 0.25 Years: 10.00 Pack years: 2.50 Types: Cigarettes Smokeless tobacco: Never Vaping Use Vaping Use: Never used Substance Use Topics Alcohol use: Yes Comment: ocass Drug use: Never Current Outpatient Medications Medication Sig potassium chloride ER (K-DUR, KLOR-CON) 20 mEq tablet Take 1 tablet by mouth twice daily. carvedilol (COREG) 6.25 mg tablet Take 2 tablets by mouth twice daily with meals. simvastatin (ZOCOR) 40 mg tablet Take 1 tablet by mouth daily at bedtime. pantoprazole DR (PROTONIX) 40 mg tablet Take 1 tablet by mouth once daily. polyethylene glycol 3350 (MIRALAX ORAL) Take by mouth. aspirin, enteric coated (ECOTRIN LOW STRENGTH) 81 mg EC tablet Take 1 tablet by mouth once daily. CALCIUM CARBONATE/VITAMIN D2 (CALCIUM + VITAMIN D ORAL) Take by mouth. gluc thomas/chondro thomas a/vit c/mn(GLUCOSAMINE CHONDROITIN MAXIMUM STRENGTH 500 MG- 400 MG CAP) Take one(1) tablet daily. multivitamins(MULTIPLE VITAMIN TAB) Take one(1) tablet daily. estradiol (ESTRACE) 0.01 % (0.1 mg/gram) vaginal cream Express 1/2 gram of cream on fingertip and apply cream just inside the vaginal opening qHS x 2 weeks, and then twice weekly (Patient not taking:Reported on 07/23/2021 ) Oxyquinoline-Na Lauryl Sulfate (TRIMO-DICKERSON JELLY) 0.025-0.01 % gel Use 1 Applicatorful vaginally twotimes a week. (Patient not taking: Reported on 07/23/2021 ) Olmesartan-hydroCHLOROthiazide (BENICAR HCT) 40-25 mg per tablet Take 1 tablet by mouth once daily. No current facility-administered medications for this visit. Examination: 75-year-old female no acute distress. Alert and oriented x3. 5 feet 4 inches tall 136 pounds. Left knee does show an effusion with lateral greater than medial joint line tenderness. Radiologic review: MRI ordered by me and to my interpretation shows tearing of the medial and lateral menisci with degenerative changes especially in the lateral compartment. Impression: Early arthritis of the left knee #2 left knee effusion #3 meniscal tears. After discussion the patient has decided on surgical intervention in the form of the knee arthroscopy. She understands that we cannot address the arthritis and in fact that may continue to act up after surgery. However I think a total knee replacement is quite aggressive giving her radiographic appearance. Therefore the plan is a left knee arthroscopic partial medial lateral meniscectomy. We discussed the risks, benefits, goals, expectations, outcomes, and complications including nerve injury and vascular injury as well as the possibility of failure of the surgical procedure to remedy the complaint. In addition, we also discussed the risk of COVID 19 exposure throughout the surgical process . All the patient's questions were answered to their satisfaction. Consents were then signed. This note was partially generated using [employer] voice recognition system and as such may contain grammatical or word errors Kevin Nj MD . documented in this encounterU[facility] Center08-05-2022 Miscellaneous Notes* Telephone Encounter - Sade Warren - 09/17/2021 1:26 PM EDT Patient returning office call and below message given Patient verbalized understanding. Appointment with nurse has been cancelled for Monday * Telephone Encounter - Kendra Tristan RN - 09/17/2021 1:[address] Beckham said patient does not need another pneumovax. Called patient at [phone], left message on voicemail to clarify reason for her scheduled nursevisit Monday. Asked her to return call to nursing to discuss. * Telephone Encounter - Kendra Tristan RN - 09/17/2021 12:34 PM EDT Patient is on the nurse visit schedule Monday for pneumovax. Chart is not flagging that she is due.Patient with history of asthma and Melanoma in situ of torso excluding breast (HCC). Please review. She already had [id number] at age 64 in 2009, then [id number] in 2015. Should she have another pnemovax 23 now? Thank you. Reason for Disposition Nursing judgment Protocols used: NO GUIDELINE OR REFERENCE [id number] documented in this encounterUc Medical Center07-29-2022 History of Present illness Narrative* Kevin Nj MD - 09/10/2021 11:06 AM EDT [facility] Department of Orthoped[facility] Kevin Nj MD FACS 75-year-old female here today with 6 months to 7 months of left knee pain. Denies any injury. She was evaluated by her primary care physician initially given a cortisone injection which did work for some time. The pain returned and an additional cortisone injection and x-rays were obtained in May. The second cortisone junction did not help. She is here because of persistent medial sided knee pain. Current Outpatient Medications Medication Sig potassium chloride ER (K-DUR, KLOR-CON) 20 mEq tablet Take 1 tablet by mouth twice daily. carvedilol (COREG) 6.25 mg tablet Take 2 tablets by mouth twice daily with meals. simvastatin (ZOCOR) 40 mg tablet Take 1 tablet by mouth daily at bedtime. Olmesartan-hydroCHLOROthiazide (BENICAR HCT) 40-25 mg per tablet Take 1 tablet by mouth once daily. pantoprazole DR (PROTONIX) 40 mg tablet Take 1 tablet by mouth once daily. polyethylene glycol 3350 (MIRALAX ORAL) Take by mouth. aspirin, enteric coated (ECOTRIN LOW STRENGTH) 81 mg EC tablet Take 1 tablet by mouth once daily. CALCIUM CARBONATE/VITAMIN D2 (CALCIUM + VITAMIN D ORAL) Take by mouth. gluc thomas/chondro thomas a/vit c/mn(GLUCOSAMINE CHONDROITIN MAXIMUM STRENGTH 500 MG- 400 MG CAP) Take one(1) tablet daily. multivitamins(MULTIPLE VITAMIN TAB) Take one(1) tablet daily. estradiol (ESTRACE) 0.01 % (0.1 mg/gram) vaginal cream Express 1/2 gram of cream on fingertip and apply cream just inside the vaginal opening qHS x 2 weeks, and then twice weekly (Patient not taking:Reported on 07/23/2021 ) Oxyquinoline-Na Lauryl Sulfate (TRIMO-DICKERSON JELLY) 0.025-0.01 % gel Use 1 Applicatorful vaginally twotimes a week. (Patient not taking: Reported on 07/23/2021 ) No current facility-administered medications for this visit. 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) Mild Intermittent Asthma Without Complication Osteoarthritis PAST SURGICAL HISTORY Procedure Laterality Date COLONOSCOPY 2006 COLONOSCOPY FLX DX W/COLLJ SPEC WHEN PFRMD 06/03/09 D&C DIAG &/OR THERAP, NOT OB HAMMERTOE REVISION, ONE TOE NEUROPLASTY &/TRANSPOS MEDIAN NRV CARPAL TUNNE Right 11/30/2017 Right carpal tunnel release NEUROPLASTY &/TRANSPOS MEDIAN NRV CARPAL TUNNE Left 05/31/2018 Left carpal tunnel release PAST SURGICAL HISTORY OF 04/13/2018 Mohl surgery on head TUBAL LIGATION, XCAPSL CTRC RMVL INSJ IO LENS PROSTH W/O ECP Left 12/2012 Cataract Extraction with Femtosecond Laser (LenSx) XCAPSL CTRC RMVL INSJ IO LENS PROSTH W/O ECP Right 01/2013 Cataract Extraction with Femtosecond Laser (LenSx) PAST MEDICAL HISTORY Diagnosis Date Arthritis Basal cell carcinoma Diverticulosis of colon (without mention of hemorrhage) External hemorrhoids without mention of complication Hemorrhage of gastrointestinal tract, unspecified Hyperglycemia Hyperlipidemia Internal hemorrhoids without mention of complication Ischemic colon (HCC) Osteoporosis Unspecified essential hypertension FAMILY HISTORY Problem Relation Age of Onset Hypertension Mother Arthritis Mother Heart Mother Hypertension Father Diabetes Father Arthritis Father Heart Father Diabetes Sister Diabetes Daughter Social History Tobacco Use Smoking status: Former Smoker Packs/day: 0.25 Years: 10.00 Pack years: 2.50 Smokeless tobacco: Never Used Vaping Use Vaping Use: Never used Substance Use Topics Alcohol use: Yes Comment: ocass Drug use: Never ALLERGIES No Known Allergies REVIEW OF SYSTEMS General: NO fever, NO chills, NO night sweats Constitutional:NO recent unwanted weight loss, NO excessive weight Skin: NO rashes, NO chronic skin condition Head: NO seizures, NO headaches, NO dizziness Respiratory: NO cough Cardiovascular: NO chest pain Gastrointestinal: NO nausea, NO vomiting, NO abdominal painEndocrine: NO thyroid problems, NO heat intolerance Musculoskeletal: see HPI Neurologic: no numbness or tingling in extremities Examination: 75-year-old female no acute distress. Alert and oriented x3. 5 feet 4 inches tall 136 pounds. Today's examination reveals an effusion with medial and anterior medial joint line tenderness. No patellofemoral tenderness. Intact ligamentous exam with no pain. Patellofemoral joint is nontender. Radiologic review: X-rays ordered previously and to my interpretation includes a single AP weightbearing suggest some mild narrowing laterally. Impression: Probable medial meniscal tear left knee #2 left knee effusion. Recommendation is an MRIas the patient's x-rays do not support any significant arthritis. This is done in anticipation of potential surgical intervention in the form of arthroscopy. At the conclusion of the office visit, the patient was asked if they had any questions regarding the diagnosis or care. Also, ample time was provided for the patient to ask any questions regarding the diagnosis therefore plan of care. All the patient's questions if asked were answered to their satisfaction. This note was partially generated using [employer] voice recognition system and as such may contain grammatical or word errors Kevin Nj MD [facility] History of Present illness Narrative* Po Beckham MD - 09/03/2021 1:00 PM EDT Appointment on 09/03/21 [employer] COVID-19 VACCINE, AGE 12+ YR (LOVE TOP) Po Beckham MD documented [facility] encounter[facility] History of Present illness Narrative* RT Haily(R) - 07/15/2021 12:30 PM EDT Radiology Service Progress Note PATIENT NAME: Oneyda Eastman DATE OF SERVICE: July 15, 2021 TIME: 12:28 PM PATIENT IDENTITY VERIFICATION COMPLETED USING TWO (2) IDENTIFIERS: Name and Date of confirmedby patient verbally. FALL SCREENING: Has the patient had 2 falls in the last year or 1 fall with injury or currently using an Ambulatory Assistive Device (Walker, Cane, Wheelchair, Crutches, etc.)? No PATIENT GENDER DATA: Female. status: : No status: NO. PATIENT RELEVANT IMPLANT DATA REVIEWED: Yes RADIOLOGY DEPARTMENT: General X-ray: Exam(s) Completed: Lower Extremity X- Ray(s): Knee, AP / LAT Left and Wt. Bearing PERIPHERAL IV DATA: Not applicable SIGNED BY: RT Haily(R) July 15, 2021 12:28 PM documented in this encounter[facility]22 History of Present illness Narrative* Po Beckham MD - 07/14/2021 11:40 AM EDT CHIEF COMPLAINT Patient presents with: cortisone shot HISTORY OF PRESENT ILLNESS Oneyda Eastman is a 75 year old female who presents here today for follow up management of knee pain. I last saw this patient on 05/26/21. Left knee Pain Patient notes having constant knee pain. She says that pain radiates down and around her leg. She has had previous cortisone injections in her knee before. Diabetes Mellitus Patient says that her sugar has been ok. She occasionally checks her sugars. adherent to current regimen without side effects from medication. No current symptoms. Health Maintenance Due for spirometry. Due for Pneumovax. Due for depression screening. Due for advance directive discussion. Due for COVID booster Labs reviewed. Past medical history, appointments, medications, allergies reviewed. REVIEW OF SYSTEMS Pertinent positives/ negatives: General: Feels well, no fever, no chills HEENT: No sinus congestion, earache, sore throat. Cardiac: No chest pain, palpitations +elevated BP Resp: No cough, wheeze, shortness of breath GI: No reflux symptoms, food intolerance, bowel changes. : No urinary frequency, dysuria. MS: +left knee pain PAST MEDICAL HISTORY PAST MEDICAL HISTORY Diagnosis Date Arthritis Basal cell carcinoma Diverticulosis of colon (without mention of hemorrhage) External hemorrhoids without mention of complication Hemorrhage of gastrointestinal tract, unspecified Hyperglycemia Hyperlipidemia Internal hemorrhoids without mention of complication Ischemic colon (HCC) Osteoporosis Unspecified essential hypertension PHYSICAL EXAMINATION BP 168/57 Pulse 64 Ht 162.6 cm (5' 4 ) Wt 61.7 kg (136 lb) SpO2 99% BMI 23.34 kg/m General: Alert, well developed, well nourished, no distress, pleasant and cooperative. Heart: Regular rate and rhythm. Normal S1 and S2. No murmurs, rubs, or gallops. Lungs: Clear to auscultation bilaterally. No respiratory distress. No wheezes, rales, or rhonchi. Abdomen: Soft, non-tender, no distention. Extremities: Feet/ankles without edema, posterior tibial pulses full and symmetrical. Assessment/Plan (M25.562) Acute pain of left knee (primary encounter diagnosis) Comment: Patient had cortisone injection one month ago and is starting to have the same pain again Plan: XR KNEE LIMITED 2V AP/LAT LEFT No medications selected for refill. RTO: PRN Scribe Attestation: By signing my name below, Nelly Arevalo, attest that this documentation has been prepared under the direction and in the presence of Fabio Beckham M.D. Electronically Signed: Dav Harrell. July 14, 2021 8:55 AM Provider Attestation: Po Arevalo MD, personally performed the services described in this documentation. All medical record entries made by the scribe were at my direction and in my presence. I have reviewed the chart and discharge instructions (if applicable) and agree that the record reflects my personal performance and is accurate and complete. Electronically Signed: Po Beckham MD. July 15, 2021 8:06 AM documented in this encounter[facility]03-[facility]22 Miscellaneous Notes* Letter - Mammography Coordinator - 05/13/2021 10:06 AM EDT May 13, 2021 PID: [id number] Oneyda Eastman [address] [place] [id number] Dear Ms. Eastman, We are pleased to inform you that the results of your recent breast imaging exam on 05/13/2021 are normal. Early detection of cancer is very important. We also understand recommendations regarding breast cancer screening are controversial. Please discuss with your primary care provider which strategy is best for you and whether a mammogram is right for you. Your imaging studies and report will [facility] part of [facility] permanent medical record and are available for your continuing care. Thank you for allowing us to help in meeting your health care needs. Sincerely, Dr. Mercer Interpreting Radiologist [facility] (Normal over 40) documented in this encounterU[facility] Center03-31-2022 History of Present illness Narrative* RT Luis A(Naomi) - 05/13/2021 9:10 AM EDT Radiology Service Progress Note PATIENT NAME: Oneyda Eastman DATE OF SERVICE: May 13, 2021 TIME: 9:13 AM PATIENT IDENTITY VERIFICATION COMPLETED USING TWO (2) IDENTIFIERS: Name and Date of confirmedby patient verbally. FALL SCREENING: Has the patient had 2 falls in the last year or 1 fall with injury or currently using an Ambulatory Assistive Device (Walker, Cane, Wheelchair, Crutches, etc.)? No PATIENT GENDER DATA: Female. status: : No status: NO. PATIENT RELEVANT IMPLANT DATA REVIEWED: Not Applicable RADIOLOGY DEPARTMENT: Mammography PERIPHERAL IV DATA: Not applicable SIGNED BY: RT Luis A(R) May 13, 2021 9:13 AM [place] [id number] History of Past illness Narrative* Problem Noted Date Resolved Date Asthma, mild persistent 12/17/2009 03/18/19 21 Ischemic colitis, enteritis, or enterocolitis 09/28/2017 documented as of this encounter (statuses as of 05/14/2021) [address]04-2010 History of Past illness Narrative* Problem Noted Date Resolved Date Asthma, mild persistent 12/17/2009 03/18/19 21 Ischemic colitis, enteritis, or enterocolitis 09/28/2017 documented as of this encounter (statuses as of 05/15/2021) [address]04-2010 History of Past illness Narrative* Problem Noted Date Resolved Date Asthma, mild persistent 12/17/2009 03/18/19 21 Ischemic colitis, enteritis, or enterocolitis 09/28/2017 documented as of this encounter (statuses as of 07/15/2021) [place] [address]2010 History of Past illness Narrative* Problem Noted Date Resolved Date Asthma, mild persistent 12/17/2009 03/18/19 21 Ischemic colitis, enteritis, or enterocolitis 09/28/2017 documented as of this encounter (statuses as of 07/16/2021) [place] [address]2010 History of Past illness Narrative* Problem Noted Date Resolved Date Asthma, mild persistent 12/17/2009 03/18/19 21 Ischemic colitis, enteritis, or enterocolitis 09/28/2017 documented as of this encounter (statuses as of 09/03/2021) [place] [address] History of Past illness Narrative* Problem Noted Date Resolved Date Asthma, mild persistent 12/17/2009 03/18/19 21 Ischemic colitis, enteritis, or enterocolitis 09/28/2017 documented as of this encounter (statuses as of 09/10/2021) [place] [address]2010 History of Past illness Narrative* Problem Noted Date Resolved Date Asthma, mild persistent 12/17/2009 03/18/19 21 Ischemic colitis, enteritis, or enterocolitis 09/28/2017 documented as of this encounter (statuses as of 09/17/2021) [address]04[address] History of Past illness Narrative* Problem Noted Date Resolved Date Asthma, mild persistent 12/17/2009 03/18/19 21 Ischemic colitis, enteritis, or enterocolitis 09/28/2017 documented as of this encounter (statuses as of 10/04/2021) [place] [address]2010 History of Past illness Narrative* Problem Noted Date Resolved Date Asthma, mild persistent 12/17/2009 03/18/19 21 Ischemic colitis, enteritis, or enterocolitis 09/28/2017 documented as of this encounter (statuses as of 10/06/2021) [address]04[address]2010 History of Past illness Narrative* Problem Noted Date Resolved Date Asthma, mild persistent 12/17/2009 03/18/19 21 Ischemic colitis, enteritis, or enterocolitis 09/28/2017 documented as of this encounter (statuses as of 10/12/2021) [address]04[address] History of Past illness Narrative* Problem Noted Date Resolved Date Asthma, mild persistent 12/17/2009 03/18/19 21 Ischemic colitis, enteritis, or enterocolitis 09/28/2017 documented as of this encounter (statuses as of 10/22/2021) [facility] note* Diagnosis Screening mamm[facility] for breast cancer [facility] Diagnosis Acute pain of left knee- Primary [facility] Diagnosis Acute pain of left knee [facility] Diagnosis COVID-19 vaccine administered- Primary [facility] Diagnosis Acute medial meniscus tear of left knee, initial encounter- Primary [facility]* Diagnosis Need for pneumococcal vaccination- Primary Need for prophylactic vaccination against streptococcus pneumoniae (pneumococcus) [facility]* Diagnosis Tear of medial meniscus of left knee, current, unspecified tear type, subsequent encounter- Primary Tear of lateral meniscus of left knee, current, unspecified tear type, subsequent encounter Knee effusion, left Effusion of lower leg joint [facility] Diagnosis Tear of medial meniscus of left knee, current, unspecified tear type, subsequent encounter- Primary Tear of lateral meniscus of left knee, current, unspecified tear type, subsequent encounter [facility]* Diagnosis Vulvovaginitis due to Jono- Primary Candidiasis of vulva and vagina Tear of medial meniscus of left knee, current, unspecified tear type, subsequent encounter Tear of lateral meniscus of left knee, current, unspecified tear type, subsequent encounter [facility]* Diagnosis Preoperative examination- Primary Preoperative examination, unspecified Tear of medial meniscus of left knee, current, unspecified tear type, subsequent encounter Tear of lateral meniscus of left knee, current, unspecified tear type, subsequent encounter Essential hypertension Unspecified essential hypertension Mixed hyperlipidemia Mild intermittent asthma without complication Unspecified asthma Gastroesophageal reflux disease, unspecified whether esophagitis present Prediabetes Other abnormal glucose Tear of medial meniscus of left knee, current, unspecified tear type, subsequent encounter Tear of lateral meniscus of left knee, current, unspecified tear type, subsequent encounter [facility]* Diagnosis S/P arthroscopic knee surgery- Primary Other postprocedural status [facility]* Diagnosis Essential hypertension- Primary Unspecified essential hypertension Mixed hyperlipidemia Prediabetes Other abnormal glucose [facility]* Diagnosis Vulvovaginitis due to Jono- Primary Candidiasis of vulva and vagina [facility]* Diagnosis Essential hypertension Unspecified essential hypertension [facility] Diagnosis Medication management Encounter for long-term (current) use of other medications [facility]* Diagnosis Prediabetes- Primary Other abnormal glucose White coat syndrome with diagnosis of hypertension Mild intermittent asthma without complication Unspecified asthma Basal cell carcinoma (BCC) of skin of neck Mixed hyperlipidemia Benign paroxysmal positional vertigo, unspecified laterality Precancerous skin lesion Unspecified disorder of skin and subcutaneous tissue Screening mammogram for breast cancer Essential hypertension Unspecified essential hypertension COVID-19 vaccine administered [facility]* Diagnosis Incomplete uterovaginal prolapse- Primary Uterovaginal prolapse, incomplete Mixed stress and urge incontinence Pessary maintenance Fitting and adjustment of other device Vaginal atrophy Postmenopausal atrophic vaginitis [facility] Diagnosis Acute midline low back pain with right-sided sciatica- Primary Right hip pain Pain in joint, pelvic region and thigh documented in this encounter [facility] note* Diagnosis Acute midline low back pain with right-sided sciatica- Primary Pain in right hip Pain in joint, pelvic region and thigh Right hip pain Pain in joint, pelvic region and thigh documented in this encounter [facility] note* Diagnosis Acute midline low back pain with right-sided sciatica Right hip pain Pain in joint, pelvic region and thigh documented in this encounter [facility] note* Diagnosis Screening mammogram for breast cancer documented in this encounter [facility] note* Diagnosis Incomplete uterovaginal prolapse- Primary Uterovaginal prolapse, incomplete Mixed stress and urge incontinence Pessary maintenance Fitting and adjustment of other device Vaginal atrophy Postmenopausal atrophic vaginitis documented in this encounter [facility] for referral (narrative)* Diagnostic Procedure Only (Routine) - Closed Specialty Diagnoses / Procedures Referred By Kashif t Referred To Contact [facility] Diagnoses Screening mammogram for breast cancer Procedures LILY SCREENING SCREENING MAMMOGRAPHY BI 2-VIEW BREAST INC CAD Po Beckham MD [address] [place] [address] [place] [address] [facility] [address] [place] [address] Referral ID Status Reason Start Date Expiration Date V isits Requested Visits Authorized [id number] Closed Auto-Generate d Referral 04/28/2021 04/22/2022 1 1 [facility] for referral (narrative)* Diagnostic Procedure Only (Routine) - Pending Review Specialty Diagnoses / Procedures Referred By Olgaac t Referred To Contact XR IMAGING Diagnoses Acute pain of left knee Procedures XR KNEE LIMITED 2V AP/LAT LEFT RADIOLOGIC EXAMINATION KNEE 1/2 VIEWS Po Beckham MD [address] [facility] [place] [place] [address] Xr Imaging Referral ID Status Reason Start Date Expiration Date Visits Requested Visits Authorized [id number] Pending Review Auto-Generat ed Referral 07/14/2021 08/13/2022 1 1 [facility] for referral (narrative)* Diagnostic Procedure Only (Routine) - Closed Specialty Diagnoses / Procedures Referred By Contac t Referred To Contact XR IMAGING Diagnoses Acute pain of left knee Procedures XR KNEE LIMITED 2V AP/LAT LEFT RADIOLOGIC EXAMINATION KNEE 1/2 VIEWS Po Beckham MD [address] [facility] [place] [place] [address] Xr Imaging Referral ID Status Reason Start Date Expiration Date V isits Requested Visits Authorized [id number] Closed Auto-Generate d Referral 07/14/2021 08/13/2022 1 1 [facility] for referral (narrative)* Diagnostic Procedure Only (Routine) - Authorized Specialty Diagnoses / Procedures Referred By Contac t Referred To Contact [facility] IM[facility] Diagnoses Screening mammogram for breast cancer Procedures LILY SCREENING SCREENING MAMMOGRAPHY BI 2-VIEW BREAST INC CAD Po Beckham MD [address] [facility] [address] [facility] [address] [place] [address] Referral ID Status Reason Start Date Expiration Date Visits Requested Visits Authorized [id number] Authorized Auto-Generat ed Referral 03/21/2022 04/20/2023 1 1 [facility] for referral (narrative)* Diagnostic Procedure Only (Routine) - Closed Specialty Diagnoses / Procedures Referred By Contac t Referred To Contact XR IMAGING Diagnoses Right hip pain Procedures XR HIP GENERAL 3V PELV/AP/LAT RIGHT RADEX HIP UNILATERAL WITH PELVIS 2-3 VIEWS Kelvin Mariscal APRN.MINER [address] [place] [address] [place] [address] Referral ID Status Reason Start Date Expiration Date V isits Requested Visits Authorized [id number] Closed Auto-Generate d Referral 09/08/2022 10/08/2023 1 1 * Diagnostic Procedure Only (Routine) - Closed Specialty Diagnoses / Procedures Referred By Kashif t Referred To Contact XR IMAGING Diagnoses Acute midline low back pain with right-sided sciatica Procedures XR LUMBAR GENERAL 3V AP/LAT/L5-S1 RADEX SPINE LUMBOSACRAL 2/3 VIEWS Kelvin Mariscal APRN.CNP [address] [place] [address] [place] [address] Referral ID Status Reason Start Date Expiration Date V isits Requested Visits Authorized [id number] Closed Auto-Generate d Referral 09/08/2022 10/08/2023 1 1 [facility] for referral (narrative)* Diagnostic Procedure Only (Routine) - Closed Specialty Diagnoses / Procedures Referred By Kashif hanson Referred To Contact [facility] IMAGING Diagnoses Screening mammogram for breast cancer Procedures LILY SCREENING SCREENING MAMMOGRAPHY BI 2-VIEW BREAST INC CAD Po Beckham MD [address] [facility] [place] [place] [address] [facility] [address] [place] [id number] Referral ID Status Reason Start Date Expiration Date V isits Requested Visits Authorized [id number] Closed Auto-Generate d Referral 03/21/2022 04/20/2023 1 1 [facility] for visit Narrative* Diagnostic Procedure Only (Routine) - Closed Specialty Diagnoses / Procedures Referred By Kashif t Referred To Contact [facility] IMAG[facility] Diagnoses Screening mammogram for breast cancer Procedures LILY SCREENING SCREENING MAMMOGRAPHY BI 2-VIEW BREAST INC CAD Po Beckham MD [address] [facility] [place] [place] [address] [facility] [address] [place] [address] Referral ID Status Reason Start Date Expiration Date V isits Requested Visits Authorized [id number] Closed Auto-Generate d Referral 04/28/2021 04/22/2022 1 1 [facility] for visit Narrative* Diagnostic Procedure Only (Routine) - Closed Specialty Diagnoses / Procedures Referred By Contac t Referred To Contact XR IMAGING Diagnoses Acute pain of left knee Procedures XR KNEE LIMITED 2V AP/LAT LEFT RADIOLOGIC EXAMINATION KNEE 1/2 VIEWS Po Beckham MD [address] [facility] [place] [place] [address] Xr Imaging Referral ID Status Reason Start Date Expiration Date V isits Requested Visits Authorized [id number] Closed Auto-Generate d Referral 07/14/2021 08/13/2022 1 1 [facility] for visit Narrative* Diagnostic Procedure Only (Routine) - Closed Specialty Diagnoses / Procedures Referred By Contac t Referred To Contact XR IMAGING Diagnoses Right hip pain Procedures XR HIP GENERAL 3V PELV/AP/LAT RIGHT RADEX HIP UNILATERAL WITH PELVIS 2-3 VIEWS Kelvin Mariscal APRN.MINER [address] [place] [address] [place] [address] Referral ID Status Reason Start Date Expiration Date V isits Requested Visits Authorized [id number] Closed Auto-Generate d Referral 09/08/2022 10/08/2023 1 1 [facility] for visit Narrative* Diagnostic Procedure Only (Routine) - Closed Specialty Diagnoses / Procedures Referred By Contac t Referred To Contact [facility] Diagnoses Screening mammogram for breast cancer Procedures LILY SCREENING SCREENING MAMMOGRAPHY BI 2-VIEW BREAST INC CAD Po Beckham MD [address] [facility] [place] [place] [address] [facility] [address] [place] [address] Referral ID Status Reason Start Date Expiration Date V isits Requested Visits Authorized [id number] Closed Auto-Generate d Referral 03/21/2022 04/20/2023 1 1 [facility] Summary Purpose Family History No Family History Records FoundNo Family History Records FoundNo Family History Records FoundNo Family History Records Found Advance Directives No Advanced Directives Records FoundDocuments on File Type Date Recorded Patient Division Road Supervisor Expl anation ACP-Advance Directive ACP-Power of Healthcare Translator Latest Code Status on File Code Status Date Activated Date Inactivated Comments Full Code 11/01/2019 6:38 AM Full Code 12/28/2018 7:04 AM 12/28/2018 12:47 PM Full Code 04/08/2016 2:58 AM 04/08/2016 5:14 PM Documents on File Type Date Recorded Patient Division Road Supervisor Expl anation Advance Directive(s) 05/31/2018 11:23 AM Advance Directive(s) 05/22/2018 10:37 AM Advance Directive(s) 04/25/2018 10:31 AM Advance Directive(s) 11/30/2017 11:06 AM Advance Directive(s) 06/11/2009 9:52 PM Documents on File Type Date Recorded Patient Division Road Supervisor Expl anation Advance Directive(s) 05/31/2018 11:23 AM Advance Directive(s) 05/22/2018 10:37 AM Advance Directive(s) 04/25/2018 10:31 AM Advance Directive(s) 11/30/2017 11:06 AM Advance Directive(s) 06/11/2009 9:52 PM Documents on File Type Date Recorded Patient Division Road Supervisor Expl anation Advance Directive(s) 06/11/2009 9:52 PM Documents on File Type Date Recorded Patient Division Road Supervisor Expl anation Advance Directive(s) 06/11/2009 9:52 PM Discharge Instructions * Instructions* Mk Chamorro, CURT - 11/01/2019 POST OPERATIVE INSTRUCTIONS PLEASE READ CAREFULLY [x] Rest but walk occasionally to prevent leg blood clots. [x] Elevation of leg while resting to at least the level of the thigh. [x] Keep ice bag(s) on area while resting; (20 minutes on and 20 minutes off). [x] DO NOT remove or get the dressing wet or dirty. [x] For showering, apply 2 layers of plastic wrap around the dressing and then place in a plastic bag with a tight rubber band. Do not immerse dressing in water. [x] Weight bearing with surgical shoe [x] Call my office today (office [phone]) for follow up appointment in 3 days. [x] Have your prescriptions filled promptly and take as prescribed. [x] Do not be alarmed if blood appears on the bandage or if black and blue coombs appear. Some silver dollar size blood on outer bandage is ok. If this gets larger Please call me. My cell phone is [phone]. [x] If any unusual situation arises- Call Immediately. documented in this encounter Assessments Diagnosis Status post right foot surgery Reason for Referral Specialty Diagnoses / Procedures Referred By Contac t Referred To Contact MR IMAGING Diagnoses Acute medial meniscus tear of left knee, initial encounter Procedures MRI KNEE WO IVCON LT MRI ANY JT LOWER [place] [address] [place] [id number] Mr Imaging Referral ID Status Reason Start Date Expiration Date Visits Requested Visits Authorized [id number] Authorized Auto-Generat ed Referral 09/10/2021 2022 1 1 Specialty Diagnoses / Procedures Referred By Contac t Referred To Contact [facility] Diagnoses Right hip pain Acute midline low back pain with right-sided sciatica Procedures CONSULT TO PHYSICAL THERAPY PHYSICAL THERAPY EVALUATION HIGH COMPLEX 45 MINS Kelvin Mariscal APRN.MINER [address] [place] [address] [facility] [place] [address] [place] [address] Referral ID Status Reason Start Date Expiration Date Visits Requested Visits Authorized [id number] Authorized PCP Requested Referral Auto-Generate d Referral 09/08/2022 09/08/2023 99 99 Specialty Diagnoses / Procedures Referred By Contac t Referred To Contact XR IMAGING Diagnoses Right hip pain Procedures XR HIP GENERAL 3V PELV/AP/LAT RIGHT RADEX HIP UNILATERAL WITH PELVIS 2-3 VIEWS Kelvin Mariscal, TIME CLOCK INSPECTOR.MINER [address] [place] [address] Xr Imaging Referral ID Status Reason Start Date Expiration Date Visits Requested Visits Authorized [id number] Pending Review Auto-Generat ed Referral 09/08/2022 10/08/2023 1 1 Specialty Diagnoses / Procedures Referred By Contac t Referred To Contact XR IMAGING Diagnoses Acute midline low back pain with right-sided sciatica Procedures XR LUMBAR GENERAL 3V AP/LAT/L5-S1 RADEX SPINE LUMBOSACRAL 2/3 VIEWS Kelvin Mariscal APRN.MINER [address] [place] [address] Xr Imaging Referral ID Status Reason Start Date Expiration Date Visits Requested Visits Authorized [id number] Pending Review Auto-Generat ed Referral 09/08/2022 10/08/2023 1 1 Additional Source Comments INFORMATION SOURCE (unrecogn ized section and content) DATE CREATED AUTHOR AUTHOR'S ORGANIZ ATION 05/14/2018 [facility] DATE CREATED AUTHOR AUTHOR'S ORGANIZ ATION 11/16/2021 [facility] DATE CREATED AUTHOR AUTHOR'S ORGANIZ ATION 02/03/2023 [facility] Source Comments (unrecognize d section and content) In the event this informatio n is protected by the Federal Confidentiality of Alcohol and Drug Abuse Patient Records regulations: The Federal rules restrict any use of the information to criminally investigate or prosecute any alcohol or drug abuse patient.[facility] the event this information is protected by the Federal Confidentiality of Alcohol and Drug Abuse Patient Records regulations: The Federal rules restrict any use of the information to criminally investigate or prosecute any alcohol or drug abuse patient.[facility] Center[facility] the event this information is protected by the Federal Confidentiality of Alcohol and Drug Abuse Patient Records regulations: The Federal rules restrict any use of the information to criminally investigate or prosecute any alcohol or drug abuse patient.[facility] Center[facility] the event this information is protected by the Federal Confidentiality of Alcohol and Drug Abuse Patient Records regulations: The Federal rules restrict any use of the information to criminally investigate or prosecute any alcohol or drug abuse patient.[facility] Center[facility] the event this information is protected by the Federal Confidentiality of Alcohol and Drug Abuse Patient Records regulations: The Federal rules restrict any use of the information to criminally investigate or prosecute any alcohol or drug abuse patient.[facility] Center[facility] the event this information is protected by the Federal Confidentiality of Alcohol and Drug Abuse Patient Records regulations: The Federal rules restrict any use of the information to criminally investigate or prosecute any alcohol or drug abuse patient.[facility] Center[facility] the event this information is protected by the Federal Confidentiality of Alcohol and Drug Abuse Patient Records regulations: The Federal rules restrict any use of the information to criminally investigate or prosecute any alcohol or drug abuse patient.[facility] Center[facility] the event this information is protected by the Federal Confidentiality of Alcohol and Drug Abuse Patient Records regulations: The Federal rules restrict any use of the information to criminally investigate or prosecute any alcohol or drug abuse patient.[facility] Center[facility] the event this information is protected by the Federal Confidentiality of Alcohol and Drug Abuse Patient Records regulations: The Federal rules restrict any use of the information to criminally investigate or prosecute any alcohol or drug abuse patient.[facility] Center[facility] the event this information is protected by the Federal Confidentiality of Alcohol and Drug Abuse Patient Records regulations: The Federal rules restrict any use of the information to criminally investigate or prosecute any alcohol or drug abuse patient.[facility] CenterIn the event this information is protected by the Federal Confidentiality of Alcohol and Drug Abuse Patient Records regulations: The Federal rules restrict any use of the information to criminally investigate or prosecute any alcohol or drug abuse patient.[facility] CenterIn the event this information is protected by the Federal Confidentiality of Alcohol and Drug Abuse Patient Records regulations: The Federal rules restrict any use of the information to criminally investigate or prosecute any alcohol or drug abuse patient.[facility] CenterIn the event this information is protected by the Federal Confidentiality of Alcohol and Drug Abuse Patient Records regulations: The Federal rules restrict any use of the information to criminally investigate or prosecute any alcohol or drug abuse patient.[facility] CenterIn the event this information is protected by the Federal Confidentiality of Alcohol and Drug Abuse Patient Records regulations: The Federal rules restrict any use of the information to criminally investigate or prosecute any alcohol or drug abuse patient.[facility] CenterIn the event this information is protected by the Federal Confidentiality of Alcohol and Drug Abuse Patient Records regulations: The Federal rules restrict any use of the information to criminally investigate or prosecute any alcohol or drug abuse patient.[facility] CenterIn the event this information is protected by the Federal Confidentiality of Alcohol and Drug Abuse Patient Records regulations: The Federal rules restrict any use of the information to criminally investigate or prosecute any alcohol or drug abuse patient.[facility] CenterIn the event this information is protected by the Federal Confidentiality of Alcohol and Drug Abuse Patient Records regulations: The Federal rules restrict any use of the information to criminally investigate or prosecute any alcohol or drug abuse patient.[facility] CenterIn the event this information is protected by the Federal Confidentiality of Alcohol and Drug Abuse Patient Records regulations: The Federal rules restrict any use of the information to criminally investigate or prosecute any alcohol or drug abuse patient.[facility] CenterIn the event this information is protected by the Federal Confidentiality of Alcohol and Drug Abuse Patient Records regulations: The Federal rules restrict any use of the information to criminally investigate or prosecute any alcohol or drug abuse patient.[facility] CenterIn the event this information is protected by the Federal Confidentiality of Alcohol and Drug Abuse Patient Records regulations: The Federal rules restrict any use of the information to criminally investigate or prosecute any alcohol or drug abuse patient.[facility] CenterIn the event this information is protected by the Federal Confidentiality of Alcohol and Drug Abuse Patient Records regulations: The Federal rules restrict any use of the information to criminally investigate or prosecute any alcohol or drug abuse patient.[facility] CenterIn the event this information is protected by the Federal Confidentiality of Alcohol and Drug Abuse Patient Records regulations: The Federal rules restrict any use of the information to criminally investigate or prosecute any alcohol or drug abuse patient.[facility] CenterIn the event this information is protected by the Federal Confidentiality of Alcohol and Drug Abuse Patient Records regulations: The Federal rules restrict any use of the information to criminally investigate or prosecute any alcohol or drug abuse patient.[facility] CenterIn the event this information is protected by the Federal Confidentiality of Alcohol and Drug Abuse Patient Records regulations: The Federal rules restrict any use of the information to criminally investigate or prosecute any alcohol or drug abuse patient.[facility] CenterIn the event this information is protected by the Federal Confidentiality of Alcohol and Drug Abuse Patient Records regulations: The Federal rules restrict any use of the information to criminally investigate or prosecute any alcohol or drug abuse patient.[facility] Care Teams (unrecognized sec tion and content) Scratcher Relationship Specialty Start Date End Date Po Beckham MD [address] [place] [address] PCP - General 03/25/09 Yarely Noel [facility] [place] [address] Consulting Dermatology 08/09/16 Scratcher Relationship Specialty Start Date End Date Po Beckham MD [address] [facility] [address] PCP - General 03/25/09 Yarely Noel [address] [place] [address] Consulting Dermatology 08/09/16 Scratcher Relationship Specialty Start Date End Date Po Beckham MD [address] [place] [address] PCP - General 03/25/09 Yarely Noel [address] [place] [address] Consulting Dermatology 08/09/16 Scratcher Relationship Specialty Start Date End Date Po Beckham MD [address] [place] [address] PCP - General 03/25/09 Yarely Noel [address] [place] [address] Consulting Dermatology 08/09/16 Scratcher Relationship Specialty Start Date End Date Po Beckham MD [address] [place] [address] PCP - General 03/25/09 Yarely Noel MD [facility] [place] [address] Consulting Dermatology 08/09/16 Scratcher Relationship Specialty Start Date End Date Po Beckham MD [address] [place] [address] PCP - General 03/25/09 Yarely Noel MD [address] [place] [address] Consulting Dermatology 08/09/16 Scratcher Relationship Specialty Start Date End Date Po Beckham MD [address] [facility] [place] [address] PCP - General 03/25/09 [place] [address] [place] [address] Consulting Dermatology 08/09/16 Scratcher Relationship Specialty Start Date End Date Po Beckham MD [address] [facility] [place] [address] PCP - General 03/25/09 Yarely Noel MD [address] [place] [address] Consulting Dermatology 08/09/16 Scratcher Relationship Specialty Start Date End Date Po Beckham MD [address] [facility] [place] [address] PCP - General 03/25/09 Yarely Noel MD [address] [place] [address] Consulting Dermatology 08/09/16 Scratcher Relationship Specialty Start Date End Date Po Beckham MD [address] [place] [address] PCP - General 03/25/09 Yarely Noel MD [address] [place] [address] Consulting Dermatology 08/09/16 Scratcher Relationship Specialty Start Date End Date Po Beckham MD [address] [place] [address] PCP - General 03/25/09 Yarely Noel MD [address] [place], [place] [address], [place] [address] Consulting Dermatology 08/09/16 Scratcher Relationship Specialty Start Date End Date Po Beckham MD [address] [facility] [place] [address] PCP - General 03/25/09 Yarely Noel MD [address] [facility] [place] [address] Consulting Dermatology 08/09/16 Scratcher Relationship Specialty Start Date End Date Po Beckham MD [address] [place] [address] PCP - General 03/25/09 Yarely Noel MD [address] [place] [address] Consulting Dermatology 08/09/16 Scratcher Relationship Specialty Start Date End Date Po Beckham MD [address] [place] [address] PCP - General 03/25/09 Yarely Noel MD [address] [facility] [place] [address] Consulting Dermatology 08/09/16 Scratcher Relationship Specialty Start Date End Date Po Beckham MD [address] [facility] [place] [address] PCP - General 03/25/09 Yarely Noel MD [address] [facility] [place] [address] Consulting Dermatology 08/09/16 Scratcher Relationship Specialty Start Date End Date Po Beckham MD [address] [place] [address] PCP - General 03/25/09 Yarely Noel MD [address] [place] [address] Consulting Dermatology 08/09/16 Scratcher Relationship Specialty Start Date End Date Po Beckham MD [address] [place] [address] PCP - General 03/25/09 Yarely Noel MD [address] [place] [address] Consulting Dermatology 08/09/16 Scratcher Relationship Specialty Start Date End Date Po Beckham MD [address] [place] [address] PCP - General 03/25/09 Yarely Noel MD [address] [place] [address] Consulting Dermatology 08/09/16 Scratcher Relationship Specialty Start Date End Date Po Beckham MD [address] [place] [address] PCP - General 03/25/09 Yarely Noel MD [address] [place] [id number] Consulting Dermatology 08/09/16 Reason for Visit (unrecogniz ed section and content) Reason Comments Allied Health Visit vaccination Reason Comments New Knee Pain Reason Comments Orders Reason Comments Established Patient Knee Pain Results - Mri Swelling Reason Comments Results Reason Comments Anesthesia Consult Reason Comments Established Patient Post Op Reason Onset Date Comments Population Health Navigation Outreach 01/05/2022 [facility] PCSA Reason Comments Refill Request Reason Comments Follow Up Reason Comments Pain Right leg started in hip radiating down leg x 2 weeks Reason Comments PT Eval Specialty Diagnoses / Procedures Referred By Kashif hanson Referred To Contact PHYSICAL THERAPY Diagnoses Right hip pain Acute midline low back pain with right-sided sciatica Procedures CONSULT TO PHYSICAL THERAPY PHYSICAL THERAPY EVALUATION HIGH COMPLEX 45 MINS Kelvin Mariscal, QUENTIN.MINER [address] [place] [address] [facility] [address] [place] [address] Referral ID Status Reason Start Date Expiration Date Visits Requested Visits Authorized [id number] Authorized PCP Requested Referral Auto-Generate d Referral 09/08/2022 09/08/2023 99 99 Reason Comments Pessary FOR RECORDS PERTAINING TO PATIENTS WHO ARE OR HAVE BEEN ENROLLED IN A CHEMICAL DEPENDENCY/SUBSTANCEABUSE PROGRAM, SOME INFORMATION MAY BE OMITTED. This clinical summary was aggregated from multiple sources. Caution should be exercised in using it in the provision of clinical care. This summary normalizes information from multiple sources, and as a consequence, information in this document may materially change the coding, format and clinical context of patient data. In addition, data may be omitted in some cases. CLINICAL DECISIONS SHOULD BE BASED ON THE PRIMARY CLINICAL RECORDS. [facility]. provides no warranty or guarantee of the accuracy or completeness of information in this document.
[2023-02-10 13:06] LABS: Anion Gap 6 (5-15); BUN 15 mg/dL (7-18); BUN/Creat Ratio 18.3 RATIO (10-20); Calcium,Total 9.5 mg/dL (8.5-10.1); Chloride 108 mmol/L (98-107); Creatinine, Serum 0.82 mg/dL (0.55-1.02); EST Glomerular Filtration Rate 72 mL/min (>60); Est Glom Filt Rate - Afr Amer 87 mL/min (>60); Estimated Creatinine Clearance 48.83 ml/min; Glucose 120 mg/dL (74-106); Sodium Level 141 mmol/L (136-145)
[2023-02-10 14:08] VITALS: BP 184/78; PULSE 66; RESP 16; O2SAT 97
== END 2023-02-10 14:13 | disposition home or self-care (01) ==
PROVIDERS: Emergency Provider Emergency Medicine; PCP Family Medicine; Referring Provider Emergency Medicine; Visit Provider Emergency Medicine
DX: I10 Essential (primary) hypertension (principal); Z79.899 Other long term (current) drug therapy
CPT/HCPCS: 80048; 85025; 99283; A4216

== ENCOUNTER 2023-12-21 11:26 | Day surgery (SDC) | payer MEDICARE, OTHER, SELFPAY ==
[2023-12-19 14:20] LABS: Hematocrit 39.9 % (37-47); Hemoglobin 13.1 g/dL (12.0-15.0); Mean Corp Hgb Conc 32.8 g/dL (32-36); Mean Corpuscular Hgb 32.7 pg (27.0-32.0); Mean Corpuscular Volume 99.5 fL (81-99); Mean Platelet Vol. 10.7 fl (6.2-12.0); Platelet Count 281 K/mm3 (150-450); RBC Distribution Width SD 44.3 fl (35.1-43.9); Red Blood Count 4.01 M/mm3 (4.2-5.4); White Blood Count 8.5 K/mm3 (4.4-11.0)
[2023-12-19 14:57] LABS: ALB/GLOB Ratio 1.2 RATIO (0.9-2.4); AST(SGOT) 12 U/L (15-37); Alanine Aminotransfer ALT/SGPT 17 U/L (13-56); Albumin, Serum 3.7 g/dL (3.2-5.0); Alkaline Phosphatase 70 U/L (45-117); Anion Gap 7 (5-15); BUN 17 mg/dL (7-18); BUN/Creat Ratio 21.9 RATIO (10-20); Calcium,Total 9.4 mg/dL (8.5-10.1); Chloride 108 mmol/L (98-107); Creatinine, Serum 0.78 mg/dL (0.55-1.02); EST Glomerular Filtration Rate 76 mL/min (>60); Est Glom Filt Rate - Afr Amer 92 mL/min (>60); Globulin 3.2 g/dL (2.2-4.2); Glucose 104 mg/dL (74-106); Potassium 4.5 mmol/L (3.5-5.1); Protein, Total 6.9 g/dL (6.4-8.2); Sodium Level 140 mmol/L (136-145)
[2023-12-21] VITALS (12 sets, daily range): BP systolic 151–194; BP diastolic 62–86; PULSE 66–75; RESP 16–18; TEMP 36.1–36.6; O2SAT 94–99; BMI 22.1
[2023-12-21] MEDS: Lidocaine 1% /Epi 1:100 (20ml) 20 ML Vial (14:29)
== END 2023-12-21 15:49 | disposition home or self-care (01) ==
LOC: SDC 11:27 → AC 11:29
PROVIDERS: PCP Family Medicine; Referring Provider Obstetrics & Gynecology; Visit Provider Obstetrics & Gynecology
PROC: 0UB98ZZ Excision of Uterus, Via Natural or Artificial Opening Endoscopic (ICD-10-PCS; CPT 58558; principal; 2023-12-21 13:45)
DX: N95.0 Postmenopausal bleeding (principal); N88.2 Stricture and stenosis of cervix uteri; Z87.19 Personal history of other diseases of the digestive system; I10 Essential (primary) hypertension; Z87.39 Personal history of other diseases of the musculoskeletal system and connective tissue; Z98.42 Cataract extraction status, left eye; Z98.51 Tubal ligation status; Z87.891 Personal history of nicotine dependence; R93.89 Abnormal findings on diagnostic imaging of other specified body structures
CPT/HCPCS: 58558; 57505; 00952; 36415; 80053; 85027; 86850; 86900; 86901; 88305; 93005; A4216; J2405